=== PATIENT | male | born 1955 | race Caucasian/White ===

== ENCOUNTER 2024-02-10 22:55 | Inpatient (IN) | payer OTHER, SELFPAY ==
[2024-02-10 18:04] VITALS: BP 170/91
[2024-02-10] MEDS: OMNIPAQUE 50 ML PO (19:12)
[2024-02-10] MEDS: NSS 1000 IV (19:21)
[2024-02-10] MEDS: ZOFRAN 4 MG IV (19:21)
[2024-02-10 19:31] LABS: % Basophils 0.2 % (0-2); % Immature Granulocytes 0.7 % (0-0.5); % Lymphocytes 2.6 % (20.5-51.1); % Neutrophils 92.5 % (42.2-75.2); Absolute Immature Granulocytes 0.1 10^3/uL (0-0.05); Absolute Lymphocytes 0.4 10^3/uL (1.2-3.4); Absolute Monocytes 0.6 10^3/uL (0.1-0.6); Absolute Neutrophils 13.6 10^3/uL (1.4-6.5); Hematocrit 52.8 % (39.0-52.0); Hemoglobin 18.2 g/dL (13.0-18.0); Mean Corp Hgb Conc. 34.5 g/dL (33.0-37.0); Mean Corpuscular Hgb 29.5 pg (27.0-31.0); Mean Corpuscular Volume 85.7 fL (80.0-94.0); Mean Platelet Volume 9.2 fL (7.4-10.4); Nucleated Red Blood Cells % 0 % (-); Platelet Count 261 10^3/uL (130-400); Red Blood Cell Count 6.16 10^6/uL (4.70-6.10); Red Cell Dist. Width 13.2 % (11.5-14.5); White Blood Cell Count 14.7 10^3/uL (4.8-10.8)
[2024-02-10] MEDS: DILAUDID 0.5 MG IV ×2 (19:38→21:47)
[2024-02-10 19:45] LABS: ALT (SGPT) 23 U/L (0-50); AST (SGOT) 31 U/L (17-59); Alkaline Phosphatase 83 U/L (38-126); Blood Urea Nitrogen 21 mg/dl (9-20); Calcium 9.7 mg/dl (8.4-10.2); Carbon Dioxide 23 mmol/L (22-30); Chloride 100 mmol/L (98-107); Glucose 190 mg/dl (70-99); Potassium 4.3 mmol/L (3.5-5.1); Sodium 136 mmol/L (135-145); Total Protein 7.4 g/dl (6.3-8.2); eGFR > 60.00
[2024-02-10 19:47] LABS: Lipase 33 U/L (23-300)
[2024-02-10 20:24] LABS: Lactic Acid 2.3 mmol/L (0.7-2.0)
--- NOTE | 2024-02-10 20:25 | ED.GENMED ---
History of Present Illness
<Yola Leonard NP - Last Filed: 02/11/24 15:53>
General
Chief Complaint: Abdominal Pain
Source: patient
Exam Limitations: none
Time Seen by Provider: 02/10/24 18:27
Nursing documentation reviewed up to this point in time: agreed with
Travel History
Have you had any contact with someone who has COVID-19?: No
Do you have any symptoms of coronavirus? Fever > 100 degrees, chills, cough, shortness of breath, sore throat, loss of taste or smell, muscle aches, or headache?: No
History of Present Illness
History of Present Illness:
Patient to ED with complaint of lower abd. pain, nausea and vomiting. States he felt well this AM, ate breakfast and then at around 9AM developed abdominal pain. Vomiting started around 3PM. Denies fever/chills, diarrha. No prior history of
same. Brought to ED by spouse for eval.
Past History
<Yola Leonard NP - Last Filed: 02/11/24 15:53>
Past History
ED Past Medical History: GERD and HTN
ED Past Surgical History: Other (Inguinal hernia repair, vasectomy)
Social History
Tobacco: Non-smoker
Alcohol: None
Drug: None
Personal:
Living: with family
Review of Systems
<Yola Leonard NP - Last Filed: 02/11/24 15:53>
Review of Systems
Allergies reviewed?: Yes
All Other Systems: ROS reviewed and negative except as documented in HPI and ROS
Constitutional: Reports no symptoms
EENT: Reports no symptoms
Respiratory: Reports no symptoms
Cardiac: Reports no symptoms
ABD/GI: Reports abdominal pain, nausea and vomiting
: Reports no symptoms
Musculoskeletal: Reports no symptoms
Skin: Reports no symptoms
Neurological: Reports no symptoms
Psychiatric: Reports no symptoms
Phy Exam
<Yola Leonard NP - Last Filed: 02/11/24 15:53>
General Physical Exam
General Presentation: moderate distress
General age: appears stated age
General Skin: warm and dry
General Habitus: normal
General Mental: alert
Cardiovascular Exam
Cardiovascular Exam: regular rate/rhythm and no edema
Pulmonary Exam
Pulmonary Exam: no respiratory distress and chest non tender
Gastrointestinal Exam
Gastrointestinal Exam: normal bowel sounds, soft, no organomegaly, non distended and no cva tenderness
Palpation: left upper quadrant: Minimal tenderness, left lower quadrant: Moderate tenderness, right upper quadrant: Minimal tenderness and right lower quadrant: Moderate tenderness
Musculoskeletal Exam
Musculoskeletal Exam: full ROM and neuro vasc intact
Skin Exam
Skin Exam: normal color, warm/dry and no rash
Psychiatric Exam
Psychiatric Exam: normal mood/affect
Course
<Yola Leonard HOMEBIRTH MIDWIFE - Last Filed: 02/11/24 15:53>
Orders/Labs/Results
Orders:
Orders
02/10/24 19:01
Ondansetron Injectable [Zofran] 4 mg IV NOW STA
02/10/24 19:02
0.9% Sodium Chloride 1000 ml [Nss] 1,000 ml IV BOLUS
02/10/24 19:05
CT Abd/pel W Iv And Oral Contr Urgent
Comment:
Reason For Exam: diffuse abdominal pain
Iohexol [Omnipaque] See Protocol PO NOW STA
02/10/24 19:23
Complete Blood Count/With Diff Urgent
Comprehensive Metabolic Panel Urgent
Lipase Urgent
02/10/24 19:30
HYDROmorphone [Dilaudid] 0.5 mg IV NOW STA
02/10/24 20:04
Lactic Acid Urgent
Blood Culture Q30M
FÉLIX Source: Blood/Venous
Specimen Description:
Blood Culture Q30M
FÉLIX Source: Blood/Venous
Specimen Description:
02/10/24 20:31
0.9% Sodium Chloride 1000 ml [Nss] 1,000 ml IV BOLUS
02/10/24 21:08
Urinalysis Reflex To Culture Urgent
Date Specimen was Collected: 02/10/24
Time Specimen was Collected: 20:58
Urine Microscopic Reflex Cult Urgent
02/10/24 21:42
HYDROmorphone [Dilaudid] 0.5 mg IV NOW STA
02/10/24 21:43
Lactated Ringers [Lr] 1,000 ml IV BOLUS
02/10/24 22:44
Admit/Transfer Patient As Directed
Co-Sign Provider:
Level of Care: Inpatient admission
Assign to:: IMU- Intermediate Care
Physician / Group: emanuel
Diagnosis: SBO
Reason for Hospitalization: SBO
Expected length of stay greater than two midnights?: Yes
ELOS- Estimated Length of Stay in days: 2
I certify the patient meets the requirements for IP care: Yes
02/10/24 22:45
Code Status As Directed
Resuscitation Status: Full Code
02/10/24 22:47
LevoFLOXacin 750 MG/150 ML [Levaquin] 750 mg in 150 ml IV NOW
MetroNIDAZOLE 500 MG/100 ML [Flagyl 500 mg] 100 ml IV NOW
02/10/24 22:54
HYDROmorphone [Dilaudid] 0.25 mg IV PACU-Q5MPRN PRN
HYDROmorphone [Dilaudid] 0.5 mg IV PACU-Q5MPRN PRN
Meperidine [Demerol] 12.5 mg IV PACU-Q5MPRN PRN
Ondansetron Injectable [Zofran] 4 mg IV PACU-ONCEPRN PRN
Prochlorperazine [Compazine] 5 mg IV PACU-ONCEPRN PRN
Notify MD As Directed
Notify physician if: for SDS patients with known or suspected sleep obstructive sleep apnea, monitor in the
PACU.
Notify MD for any apneic/desaturation episodes
O2 Therapy [RESP] Urgent
Titrate/Wean O2 to maintain O2 sat greater than (%): 92
Special Instructions: -Provide supplemental oxygen to achieve O2 sat of 92% or greater.
-After 15 min, may wean O2 and discontinue if patient is able to maintain O2 sat of 92%
or greater during recovery period.
If patient is a discharge home, without oxygen therapy, notify anestheiologist if
unable to maintain O2 SAT of 92% or greater on room air for MD clearance.
02/10/24 23:00
Lactic Acid Urgent
Flush (0.9% Sodium Chloride) [Flush (Nss)] See Dose Instructions IV PER PROTOCOL
Normosol (Mult Electrolytes) [Normosol-R] 1,000 ml IV PER PROTOCOL
02/10/24 23:45
Cefepime HCl [Maxipime] 2,000 mg IV Q8H
02/11/24 00:26
0.9% Sodium Chloride 1000 ml [Nss] 1,000 ml IV 100 mls/hr
HYDROmorphone [Dilaudid] 0.5 mg IV Q4HPRN PRN
HydrALAZINE [Apresoline] 5 mg IV Q6HPRN PRN
LevoFLOXacin 750 MG/150 ML [Levaquin] 750 mg in 150 ml IV Q24H
Ondansetron Injectable [Zofran] 4 mg IV Q6HPRN PRN
02/11/24 00:26
SURGICAL CONSULT Routine
Consulting Provider: Roni Lucas
Was physician already notified: Yes
Activity As Directed
Activity Level: As Tolerated
Pneumatic Compression Sleeves As Directed
Type: Knee high
Vital Signs As Directed
Frequency: Per unit guidelines
DX Deep Vein Thrombosis Video Routine
02/11/24 03:20
Complete Blood Count/With Diff IN AM
Comprehensive Metabolic Panel IN AM
02/11/24 12:00
MetroNIDAZOLE 500 MG/100 ML [Flagyl 500 mg] 100 ml IV Q8H
02/11/24 Dinner
NPO
Allow oral meds: No
Allow clear liquids: No
02/11/24 22:00
Famotidine [Pepcid] 20 mg IV HS
Abnormal Lab Results
02/10/24 02/10/24 02/10/24
19:23 20:04 21:08
WBC 14.7 H 10^3/uL
(4.8-10.8)
RBC 6.16 H 10^6/uL
(4.70-6.10)
Hgb 18.2 H g/dL
(13.0-18.0)
Hct 52.8 H %
(39.0-52.0)
Abs Immat Gran (auto) 0.1 H 10^3/uL
(0-0.05)
Absolute Neuts (auto) 13.6 H 10^3/uL
(1.4-6.5)
Absolute Lymphs (auto) 0.4 L 10^3/uL
(1.2-3.4)
Immature Gran % 0.7 H %
(0-0.5)
Neutrophils % 92.5 H %
(42.2-75.2)
Lymphocytes % 2.6 L %
(20.5-51.1)
BUN 21 H mg/dl
(9-20)
Glucose 190 H mg/dl
(70-99)
Lactic Acid 2.3 H mmol/L
(0.7-2.0)
Urine Ketones 2+ A
(Negative)
Urine Bacteria (Reflex) Few A
(Negative)
Urine Glucose 1+ A
(Negative)
Urine Albumin (Reflex) 1+ A
(Neg - Trace)
02/10/24 19:23
02/10/24 19:23
Vital Signs
Initial and Last Documented VS:
Initial Vital Signs
Temp Pulse Resp BP Pulse Ox
97.8 F 51 20 170/91 100
02/10/24 18:04 02/10/24 18:04 02/10/24 18:04 02/10/24 18:04 02/10/24 18:04
Last Documented Vital Signs
Temp Pulse Resp BP Pulse Ox
100.2 F 83 20 82/64 94
02/11/24 15:00 02/11/24 14:45 02/11/24 14:45 02/11/24 14:45 02/11/24 15:31
<Nir Mistry PA-C - Last Filed: 02/10/24 23:46>
Orders/Labs/Results
Orders:
Orders
02/10/24 19:01
Ondansetron Injectable [Zofran] 4 mg IV NOW STA
02/10/24 19:02
0.9% Sodium Chloride 1000 ml [Nss] 1,000 ml IV BOLUS
02/10/24 19:05
CT Abd/pel W Iv And Oral Contr Urgent
Comment:
Reason For Exam: diffuse abdominal pain
Iohexol [Omnipaque] See Protocol PO NOW STA
02/10/24 19:23
Complete Blood Count/With Diff Urgent
Comprehensive Metabolic Panel Urgent
Lipase Urgent
02/10/24 19:30
HYDROmorphone [Dilaudid] 0.5 mg IV NOW STA
02/10/24 20:04
Lactic Acid Urgent
Blood Culture Q30M
FÉLIX Source: Blood/Venous
Specimen Description:
Blood Culture Q30M
FÉLIX Source: Blood/Venous
Specimen Description:
02/10/24 20:31
0.9% Sodium Chloride 1000 ml [Nss] 1,000 ml IV BOLUS
02/10/24 21:08
Urinalysis Reflex To Culture Urgent
Date Specimen was Collected: 02/10/24
Time Specimen was Collected: 20:58
Urine Microscopic Reflex Cult Urgent
02/10/24 21:42
HYDROmorphone [Dilaudid] 0.5 mg IV NOW STA
02/10/24 21:43
Lactated Ringers [Lr] 1,000 ml IV BOLUS
02/10/24 22:44
Admit/Transfer Patient As Directed
Co-Sign Provider:
Level of Care: Inpatient admission
Assign to:: IMU- Intermediate Care
Physician / Group: emanuel
Diagnosis: SBO
Reason for Hospitalization: SBO
Expected length of stay greater than two midnights?: Yes
ELOS- Estimated Length of Stay in days: 2
I certify the patient meets the requirements for IP care: Yes
02/10/24 22:45
Code Status As Directed
Resuscitation Status: Full Code
02/10/24 22:47
LevoFLOXacin 750 MG/150 ML [Levaquin] 750 mg in 150 ml IV NOW
MetroNIDAZOLE 500 MG/100 ML [Flagyl 500 mg] 100 ml IV NOW
02/10/24 22:54
HYDROmorphone [Dilaudid] 0.25 mg IV PACU-Q5MPRN PRN
HYDROmorphone [Dilaudid] 0.5 mg IV PACU-Q5MPRN PRN
Meperidine [Demerol] 12.5 mg IV PACU-Q5MPRN PRN
Ondansetron Injectable [Zofran] 4 mg IV PACU-ONCEPRN PRN
Prochlorperazine [Compazine] 5 mg IV PACU-ONCEPRN PRN
Notify MD As Directed
Notify physician if: for SDS patients with known or suspected sleep obstructive sleep apnea, monitor in the
PACU.
Notify MD for any apneic/desaturation episodes
O2 Therapy [RESP] Urgent
Titrate/Wean O2 to maintain O2 sat greater than (%): 92
Special Instructions: -Provide supplemental oxygen to achieve O2 sat of 92% or greater.
-After 15 min, may wean O2 and discontinue if patient is able to maintain O2 sat of 92%
or greater during recovery period.
If patient is a discharge home, without oxygen therapy, notify anestheiologist if
unable to maintain O2 SAT of 92% or greater on room air for MD clearance.
02/10/24 23:00
Lactic Acid Urgent
Flush (0.9% Sodium Chloride) [Flush (Nss)] See Dose Instructions IV PER PROTOCOL
Normosol (Mult Electrolytes) [Normosol-R] 1,000 ml IV PER PROTOCOL
02/10/24 23:45
Cefepime HCl [Maxipime] 2,000 mg IV Q8H
02/11/24 00:26
0.9% Sodium Chloride 1000 ml [Nss] 1,000 ml IV 100 mls/hr
HYDROmorphone [Dilaudid] 0.5 mg IV Q4HPRN PRN
HydrALAZINE [Apresoline] 5 mg IV Q6HPRN PRN
LevoFLOXacin 750 MG/150 ML [Levaquin] 750 mg in 150 ml IV Q24H
Ondansetron Injectable [Zofran] 4 mg IV Q6HPRN PRN
02/11/24 00:26
SURGICAL CONSULT Routine
Consulting Provider: Roni Lucas
Was physician already notified: Yes
Activity As Directed
Activity Level: As Tolerated
Pneumatic Compression Sleeves As Directed
Type: Knee high
Vital Signs As Directed
Frequency: Per unit guidelines
DX Deep Vein Thrombosis Video Routine
02/11/24 03:20
Complete Blood Count/With Diff IN AM
Comprehensive Metabolic Panel IN AM
02/11/24 12:00
MetroNIDAZOLE 500 MG/100 ML [Flagyl 500 mg] 100 ml IV Q8H
02/11/24 Dinner
NPO
Allow oral meds: No
Allow clear liquids: No
02/11/24 22:00
Famotidine [Pepcid] 20 mg IV HS
Abnormal Lab Results
02/10/24 02/10/24 02/10/24
19:23 20:04 21:08
WBC 14.7 H 10^3/uL
(4.8-10.8)
RBC 6.16 H 10^6/uL
(4.70-6.10)
Hgb 18.2 H g/dL
(13.0-18.0)
Hct 52.8 H %
(39.0-52.0)
Abs Immat Gran (auto) 0.1 H 10^3/uL
(0-0.05)
Absolute Neuts (auto) 13.6 H 10^3/uL
(1.4-6.5)
Absolute Lymphs (auto) 0.4 L 10^3/uL
(1.2-3.4)
Immature Gran % 0.7 H %
(0-0.5)
Neutrophils % 92.5 H %
(42.2-75.2)
Lymphocytes % 2.6 L %
(20.5-51.1)
BUN 21 H mg/dl
(9-20)
Glucose 190 H mg/dl
(70-99)
Lactic Acid 2.3 H mmol/L
(0.7-2.0)
Urine Ketones 2+ A
(Negative)
Urine Bacteria (Reflex) Few A
(Negative)
Urine Glucose 1+ A
(Negative)
Urine Albumin (Reflex) 1+ A
(Neg - Trace)
02/10/24 19:23
02/10/24 19:23
Vital Signs
Initial and Last Documented VS:
Initial Vital Signs
Temp Pulse Resp BP Pulse Ox
97.8 F 51 20 170/91 100
02/10/24 18:04 02/10/24 18:04 02/10/24 18:04 02/10/24 18:04 02/10/24 18:04
Last Documented Vital Signs
Temp Pulse Resp BP Pulse Ox
100.2 F 83 20 82/64 94
02/11/24 15:00 02/11/24 14:45 02/11/24 14:45 02/11/24 14:45 02/11/24 15:31
<Yola Leonard NP - Last Filed: 02/11/24 15:53>
*Radiology
Radiology exam reviewed: radiology read reviewed
*Pulse Oximetry
Patient hypoxic: no
<Nir Mistry PA-C - Last Filed: 02/10/24 23:46>
*Critical Care Note
Total Time (30-74mins, 75-104mins- exclusive of procedures): 45 minutes
comment:
Critical care time: 45 minutes
Critical care time was exclusive of: Separately billable procedures, treating other patients, and teaching time
Critical care was necessary to treat or prevent imminent or life-threatening deterioration of the following conditions: Bowel obstruction with bowel ischemia
Critical care time spent personally by me on the following activities:
[x] Review of old charts
[x] Obtaining history from patient or surrogate
[x] Ordering and review of the laboratory studies
[x] Ordering and review of radiographic studies
[x] Ordering and performing treatments and interventions
[x] Patient patient's response to treatment
[x] Development of treatment plan with patient or surrogate
<Nir Mistry PA-C - Last Filed: 02/10/24 23:46>
Update Note
Update Note:
Assumed care of patient from Yola Leonard HOMEBIRTH MIDWIFE at shift change 2100. Awaiting CT scan for diffuse abdominal pain. Has received IV fluids, antiemetics, and opiates for pain.
02/10/2024 2145 PM: CT personally reviewed by me concerning for bowel perforation with significant free fluid in the peritoneum as well as diaphragmatic air, patient reassessed, he has a peritonitic abdomen but appears clinically stable otherwise.
Will order further IV fluid resuscitation and pain control, awaiting radiology read
02/10/20243: Case was reviewed with general surgery hospitalist for admission purposes. NG tube was attempted twice by nursing staff, there was some removal of gastric contents however the patient began to vomit around the tube and the tube was
withdrawn. General surgery reviewed the images and has opted for urgent operative intervention due to signs of bowel ischemia. Levofloxacin and metronidazole will be administered. Patient will be taken urgently to the OR
ED Attending Note
<Yola Leonard NP - Last Filed: 02/11/24 15:53>
-
Portions of this chart may have been created with voice recognition software.� Occasional wrong word or��sound alike� substitutions may have occurred due to the inherent limitations of voice recognition software.
Discharge Plan
Departure
Patient Disposition: Admit
Date of Disposition: 02/10/24
Time of Disposition: 22:32
Admit to: ICU
Presentation/result/management discussed w/ accepting MD/DO: Hospitalist
Discharge Problem:
Small bowel obstruction
Interventions
Interventions:
*Risk Screen - Suicide Last Done: 02/10/24 18:59
*General Assessment Last Done: 02/10/24 18:59
*Neglect/Abuse Screening Last Done: 02/10/24 18:59
ED- Fall Risk Assessment Last Done: 02/10/24 23:28
*ED COVID-19 Vaccine History Last Done: 02/10/24 18:04
*Nursing Disposition Last Done: 02/10/24 23:40
GE-Mkfqct-Bzwdavpbpo Assessment Last Done: 02/10/24 23:28
Discharge Date and Time
Discharge Date/Time: 02/10/24 23:41
[2024-02-10 21:15] LABS: Urine Albumin 1+ (Neg - Trace); Urine Bilirubin Negative (Negative); Urine Character Clear (Clear); Urine Color Yellow; Urine Glucose 1+ (Negative); Urine Ketone 2+ (Negative); Urine Leukocyte Negative (Negative); Urine Nitrite Negative (Negative); Urine Occult Blood Negative (Negative); Urine Specific Gravity 1.025 (<1.030); Urine Urobilinogen Negative (Neg - 1+)
[2024-02-10 21:23] LABS: Urine Mucus Few; Urine Squamous Cell 0-2 /LPF (Few)
[2024-02-10 21:24] LABS: Urine Bacteria Few (Negative); Urine Red Blood Cell 0-2 /HPF (0-2); Urine White Cell 0-2 /HPF (0-5)
[2024-02-10] MEDS: LR 1000 IV (21:47)
[2024-02-10 22:32] VITALS: BP 124/100
[2024-02-10 22:35] VITALS: BP 124/97
[2024-02-10 23:00] VITALS: BP 118/99
--- NOTE | 2024-02-10 23:03 | HPS.HSE ---
Addendum entered and electronically signed by Awa Walsh MD 02/10/24 23:18:
Irregular heart rate secondary to PVCs seen on heart monitor.
Original Note:
Family Physician
-
Family Physician: Michael Dent
Chief Complaint
-
abdominal pain, vomiting
History of Present Illness
68-year-old male past medical history of hypertension, GERD, gout, presenting with lower abdominal pain, nausea and vomiting. He felt fine this morning and ate breakfast and then around 9 AM he developed the pain across his abdomen. Vomiting
started later at around 3 PM. He denies any blood in the vomit. He denies any fevers or chills. He did have some diarrhea yesterday but no bowel movements today.
He denies smoking or alcohol use.
He had right inguinal hernia repair in 2019.
Medical History
Past Medical History
Past Medical History: Reports Other (hypertension, GERD, gout)
Past Surgical History: Reports Other (Inguinal hernia repair, vasectomy,)
Social History
Tobacco: Non-smoker
Alcohol: None
Drug: None
Family History
Family History: Not pertinent
Allergies / Home Medications
Allergies reflects when Allergies were last updated in [employer].
Home Medications with original date entered in [employer]
Allergy/Medication List:
Allergies
Allergy/AdvReac Type Severity Reaction Status Date / Time
Penicillins Allergy Hives Verified 02/10/24 18:08
Home Medications
allopurinol 300 mg tablet 300 mg PO DAILY 02/10/24
amlodipine 5 mg tablet 5 mg PO DAILY 02/10/24
aspirin 81 mg tablet,delayed release 81 mg PO DAILY 02/10/24
famotidine 20 mg tablet 20 mg PO HS 02/10/24
lisinopril 20 mg-hydrochlorothiazide 12.5 mg tablet 1 tab PO DAILY 02/10/24
lovastatin 40 mg tablet 40 mg PO HS 02/10/24
Review of Systems
-
History Source: Patient
A 12 point ROS was completed and negative except as noted: Yes
Constitutional: Reports No Symptoms
EENT: Reports No Symptoms
Respiratory: Reports No Symptoms
Cardiac: Reports No Symptoms
Abdomen/GI: Reports See HPI
: Reports No Symptoms
Musculoskeletal: Reports No Symptoms
Skin: Reports No Symptoms
Neurological: Reports No Symptoms
Endocrine: Reports No Symptoms
Hematologic/Lymphatic: Reports No Symptoms
Psych: Reports No Symptoms
Physical Exam
Vital Signs
Vital Signs
Temp Pulse Resp BP Pulse Ox
97.8 F 51 20 170/91 100
02/10/24 18:04 02/10/24 18:04 02/10/24 18:04 02/10/24 18:04 02/10/24 18:04
Physical Exam
General: Well Developed, Well Nourished and No Apparent Distress
HEENT: NormoCephalic, Moist mucous membranes and Atraumatic
Respiratory: Clear
Cardiac: S1/S2 and Regular Rhythm; No Murmur or Rub
GI: Soft, Non Distended, Normal Bowel Sounds and Tender (diffusely ); No Organomegaly
Rectal: Deferred by Provider
Musculoskeletal: No Clubbing, No Cyanosis and No Edema
Skin: No Rash
Neuro: Nonfocal/grossly intact
Laboratory Results
-
02/10/24 19:23
02/10/24 19:23
Laboratory Results
Lactic Acid 2.3 mmol/L (0.7-2.0) H 02/10/24 20:04
Total Bilirubin 1.0 mg/dl (0.2-1.3) 02/10/24 19:23
AST 31 U/L (17-59) 02/10/24 19:23
ALT 23 U/L (0-50) 04/30/24 19:23
Alkaline Phosphatase 83 U/L (38-126) 02/10/24 19:23
Lipase 33 U/L (23-300) 02/10/24 19:23
Data Reviewed
-
Lab Data: Labs Reviewed by me
Old Records: Reviewed
Impression/Plan
-
IMPRESSION:
PLAN:
# Small bowel closed-loop obstruction with ischemia possibly secondary to internal hernia/volvulus
# Associated slight twisting of adjacent distal transverse/proximal descending colon without colonic obstruction
-N.p.o. including oral medications
-NG tube attempted but unable to be placed
-Blood cultures pending
-IV fluids
-Levaquin/Flagyl
-Zofran, Dilaudid as needed
-Surgery consulted and patient to undergo ex lap tonight
# Essential hypertension
-Hold amlodipine, lisinopril/thiazide,
-As needed hydralazine
GERD
-Switch Pepcid to IV
Gout
-Hold allopurinol
Full code
DVT prophylaxis�SCDs
N.p.o.
[2024-02-10] MEDS: LEVAQUIN 150 IV (23:14)
[2024-02-10 23:17] LABS: Lactic Acid 4.3 mmol/L (0.7-2.0)
[2024-02-10 23:26] VITALS: BP 110/95
[2024-02-11] VITALS (67 sets, daily range): BP systolic 76–120; BP diastolic 52–98; BMI 27.5
--- NOTE | 2024-02-11 02:09 | CON.GS ---
Consultation
-
Requesting Provider: Fidelia
Performing Provider: Shayy
Reason for Consultation: Ischemic bowel
Medical History
-
Chief Complaint: Abd pain
History of Present Illness:
68-year-old male presenting with acute onset lower abdominal pain, nausea and vomiting that began this morning. He felt fine this initially morning and ate breakfast and then around 9 AM he developed the pain across his lower abdomen. Vomiting
started later at around 3 PM. He denies any blood in the vomit. He denies any fevers or chills. He did have some diarrhea yesterday but no bowel movements today. Never had a similar problem in the past.
Past Medical History
Past Medical History: Other (hypertension, GERD, gout)
Past Surgical History: Other (inguinal hernia repair, vasectomy)
Social History
Tobacco: Non-Smoker
Alcohol: None
Drug: None
Personal:
Living: With Family
Family History
Family History: Reviewed & Noncontributory
Allergies / Home Medications
Allergy/AdvReac Type Severity Reaction Status Date / Time
Penicillins Allergy Hives Verified 02/10/24 18:08
�Medication �Instructions �Recorded �Confirmed �Type
allopurinol 300 mg tablet 300 mg PO DAILY 02/10/24 02/10/24 History
amlodipine 5 mg tablet 5 mg PO DAILY 02/10/24 02/10/24 History
aspirin 81 mg tablet,delayed 81 mg PO DAILY 02/10/24 02/10/24 History
release
famotidine 20 mg tablet 20 mg PO HS 02/10/24 02/10/24 History
lisinopril 20 1 tab PO DAILY 02/10/24 02/10/24 History
mg-hydrochlorothiazide 12.5 mg
tablet
lovastatin 40 mg tablet 40 mg PO HS 02/10/24 02/10/24 History
Review of Systems
-
A 10 point review of systems was completed, and was negative except as per HPI.
Physical Exam
Vital Signs
Temp Pulse Resp BP Pulse Ox
98.4 F 105 23 118/99 95
02/10/24 23:00 02/10/24 23:00 02/10/24 23:00 02/10/24 23:00 02/10/24 23:00
02/09/24 02/10/24 02/11/24
06:59 06:59 06:59
Actual Weight 82.5 kg
Lab Results
WBC 14.7 10^3/uL (4.8-10.8) H 02/10/24 19:23
Hgb 18.2 g/dL (13.0-18.0) H 02/10/24 19:23
Hct 52.8 % (39.0-52.0) H 02/10/24 19:23
Plt Count 261 10^3/uL (130-400) 02/10/24 19:23
Abs Immat Gran (auto) 0.1 10^3/uL (0-0.05) H 02/10/24 19:23
Neutrophils % 92.5 % (42.2-75.2) H 02/10/24 19:23
Physical Exam
General: Other (mild distress)
HEENT: Normocephalic and Anicteric
GI: Soft, Tender (tt light perc) and Distended
Skin: Other (pale, diaphoretic)
Neuro: AO x 3
Data Reviewed
-
CT Scan: Image Personally Visualized and interpreted, Report Reviewed by me, Discussed with Physician, Discussed with Patient and Discussed with Family
Labs: Labs Reviewed by me, Discussed with Physician, Discussed with Patient and Discussed with Family
Assessment / Plan
-
68M with ischemic bowel, peritonitis 2/2 closed loop SBO
AFVSS, diffuse peritonitis on exam
Mild leukocytosis, CBC appears concentrated
Lactic elevated in ED on initial draw
CT with severely edematous small bowel and apparent closed loop obstruction without free air, pneumatosis or PV gas; segment of affected bowel appears limited to left jesusita-abdomen
Plan:
Hospitalist admit
NGT/NPO/IVF
IV abx empiric
OCTOR for dx lap, poss ex lap, poss bowel resection
SCDs for DVT ppx
--- NOTE | 2024-02-11 02:14 | W.IMMPOSTOP ---
Surgical Immed Post Op Note
-
Primary Surgeon: Shayy
Pre-op Diagnosis: Ischemic bowel
Post-op Diagnosis: Ischemic bowel, necrotic bowel
Procedure Performed: Diagnostic laparoscopy, exploratory laparotomy, small bowel resection
Anesthesia Type: GETA + TAP block (marcaine)
Specimen / Cultures: Approx 135cm distal small bowel
Estimated Blood Loss: 15cc
Complications: None
Operative Findings: Hemorrhagic and necrotic small bowel tethered by a single band adhesion in the left lower quadrant, affected segment was distal small bowel up to about 25cm proximal to the cecum; no perforation, no contamination; side-side
stapled anastomosis with DEENA 80mm purple load stapler, corners dunked with lembert sutures, mesenteric defect closed
--- NOTE | 2024-02-11 02:19 | OR.RPT ---
Operative Report
Operative Report
Primary Surgeon: Shayy
Pre-op Diagnosis: Ischemic bowel
Post-op Diagnosis: Ischemic bowel, necrotic bowel
Procedure Performed: Diagnostic laparoscopy, exploratory laparotomy, small bowel resection
Anesthesia Type: GETA + TAP block (marcaine)
Specimen / Cultures: Approx 135cm distal small bowel
Estimated Blood Loss: 15cc
Complications: None
Operative Findings: Hemorrhagic and necrotic small bowel tethered by a single band adhesion in the left lower quadrant, affected segment was distal small bowel up to about 25cm proximal to the cecum; no perforation, no contamination; side-side
stapled anastomosis with DEENA 80mm purple load stapler, corners dunked with lembert sutures, mesenteric defect closed
Date of Surgery: 02/11/24
Indications: This 68M developed lower abdominal pain and on workup was found to have threatened bowel. Diagnostic laparoscopy with possible exploratory laparotomy and possible small bowel resection was planned.
Description of procedure: The patient was placed on the operating table in the supine position. General anesthesia was induced. A time-out was completed verifying correct patient, procedure, site, positioning, and special equipment prior to
beginning this procedure. A nasogastric tube was placed. The abdomen was prepped and draped in the usual sterile fashion. A stab incision was made in left upper quadrant and the Veress needle was inserted. Proper position was confirmed by aspiration
and saline meniscus test. The abdomen was insufflated with carbon dioxide to a pressure of 12 mmHg. The patient tolerated insufflation well.
A 5mm optical trocar was then inserted at the right lower quadrant. The laparoscope was inserted and the abdomen inspected. No injuries from initial trocar placement or Veress needle insertion were noted. An additional 5mm trocar was then inserted a
hand's breadth above the initial trocar under direct vision. The abdomen was inspected and hemorrhagic fluid and dark hemorrhagic small bowel was noted. An atraumatic bowel grasper was used to gently sweep the affected small bowel laterally and
healthy viable small bowel was exposed. This bowel was run in a proximal direction to the ligament of treitz and then distally back down to the transition point in the left lower quadrant. In this area black frankly necrotic small bowel was visible.
At this point the operation was converted to open. An upper midline incision was created with bovie cut cautery and carried down to the linea alba with coag cautery. The linea alba was divided and the abdomen was entered. Hemorrhagic fluid was
suctioned. The bowel was manually run to the transition point which was deep and posterior in the left lower quadrant. A single band adhesion was palpated tethering the bowel in this location, this adhesion was lysed bluntly with finger fracture
technique. The liberated small bowel immediately perked up. It was run again and the flick test was used to determine bowel viability in the zones distal and proximal to the frankly necrotic segment where the bowel was clearly hemorrhagic but
appeared potentially viable. The affected segment measured about 135cm. The viable segment measured approximately 175cm including the proximal segment and the viable portion of the terminal ileum. The bowel was transected proximal and distal to the
affected segment in areas where peristalsis was confirmed, using an 80mm DEENA stapler with purple loads. A side-side anastomosis was created with the same stapler and loads. The common channel was inspected and intraluminal hemostasis was assured
prior to closure. The corners of the staple line were dunked using 2-0 vicryl lembert sutures. The mesenteric defect was closed with the same suture. The abdomen was irrigated with warm sterile saline. The fascia was closed with #1 PDS stratafix
suture. The subcutaneous tissue was irrigated with sterile saline and the skin was closed with cleopatra and covered with an aquacel dressing. The two lap sites were closed with cleopatra and dressed with plain dry gauze and tegaderm, the veress site
was dressed with a bandaid.
The patient remained intubated at the conclusion of the procedure and was taken directly to the ICU on vasoactive medications.
[2024-02-11] MEDS: DIPRIVAN 100 IV (03:06)
[2024-02-11] MEDS: SUBLIMAZE 100 IV (03:07)
[2024-02-11 03:26] LABS: B.E. -5.2 mmol/L; HCO3 19.2 mmol/L (21-28); O2 Saturation % 99.6 % (94-98); PCO2 34 mmHg (35-48); PO2 249 mmHg (83-108); pH 7.36 (7.35-7.45)
[2024-02-11 03:29] LABS: % Basophils 0.2 % (0-2); % Eosinophils 0.1 % (0-6); % Immature Granulocytes 0.9 % (0-0.5); % Lymphocytes 3.6 % (20.5-51.1); % Monocytes 6.9 % (1.7-9.3); % Neutrophils 88.3 % (42.2-75.2); Absolute Immature Granulocytes 0.1 10^3/uL (0-0.05); Absolute Lymphocytes 0.4 10^3/uL (1.2-3.4); Absolute Monocytes 0.7 10^3/uL (0.1-0.6); Absolute Neutrophils 9.2 10^3/uL (1.4-6.5); Hematocrit 52.9 % (39.0-52.0); Hemoglobin 18.3 g/dL (13.0-18.0); Mean Corp Hgb Conc. 34.6 g/dL (33.0-37.0); Mean Corpuscular Hgb 29.3 pg (27.0-31.0); Mean Corpuscular Volume 84.8 fL (80.0-94.0); Mean Platelet Volume 9.3 fL (7.4-10.4); Nucleated Red Blood Cells % 0 % (-); Platelet Count 300 10^3/uL (130-400); Red Blood Cell Count 6.24 10^6/uL (4.70-6.10); Red Cell Dist. Width 13.3 % (11.5-14.5); White Blood Cell Count 10.4 10^3/uL (4.8-10.8)
[2024-02-11] MEDS: NSS 1000 IV ×3 (03:35→19:45)
[2024-02-11 03:39] LABS: INR 1.28; PT 15.8 Sec (11.4-14.6)
[2024-02-11 03:40] LABS: APTT 27.3 Sec (23.4-35.0)
[2024-02-11 03:41] LABS: O2 Therapy 60%
[2024-02-11] MEDS: FLAGYL 500 MG 100 IV ×3 (03:51→19:46)
--- NOTE | 2024-02-11 04:00 | PTCARENOTE ---
Received pt. from OR nurse at approximately 3am. Pt. sedated and intubated on ventilator. Opening eyes and making eye contact to voice. Fentanyl gtt infusing for pain management, see MAR. Afebrile. Heart rhythm sinus. Levophed gtt infusing to
maintain MAP >65. On ventilator via ETT. Ventilator settings verified. Lungs sound diminished. NG tube placed in L nare, confirmed by Xray. Pretty catheter placed per order, draining without issue. Skin as documented. Discussed plan of care with
patient's spouse before she went home. AM labs drawn. Vital signs stable at this time.
[2024-02-11 04:04] LABS: Triglycerides 79 mg/dl (10-149)
[2024-02-11 04:07] LABS: ALT (SGPT) 16 U/L (0-50); AST (SGOT) 18 U/L (17-59); Albumin 3.1 g/dl (3.5-5.0); Alkaline Phosphatase 67 U/L (38-126); Blood Urea Nitrogen 26 mg/dl (9-20); Calcium 7.7 mg/dl (8.4-10.2); Carbon Dioxide 17 mmol/L (22-30); Chloride 105 mmol/L (98-107); Estimated Creatinine Clearance 69 ml/min; Glucose 179 mg/dl (70-99); Phosphorus 3.9 mg/dl (2.5-4.5); Potassium 5.3 mmol/L (3.5-5.1); Sodium 131 mmol/L (135-145); Total Bilirubin 0.8 mg/dl (0.2-1.3); eGFR > 60.00
[2024-02-11] MEDS: SODIUM BICARBONATE 1075 MEQ IV (04:47)
[2024-02-11] MEDS: LEVOPHED 250 IV ×2 (05:32→11:06)
[2024-02-11] MEDS: LR 500 IV ×2 (06:12→15:35)
--- NOTE | 2024-02-11 09:42 | PTCARENOTE ---
Pt received from clinical nurse RN. Currently intubated and lightly sedated. Follows commands, spells out words on the bed. Fentanyl off at 0700, propofol off at 0800. NSR on tele with frequent PVC's, A line very positional, does not correlate well
with NIBP. Titrating pressors based on NIBP. Tolerating vent well, SBT started. Breath sounds clear, 100% on 40% FiO2. L nare [place] to LIS, flushed with 30mls tap water. Thermister ruby in place draining clear yellow urine at 40mls/hr. Midline ABD
incision covered with aquacell. 2 puncture sites on R side of ABD covered. 1 puncture site on L side of ABD COMIC ILLUSTRATOR. IV sites intact. Restraints intact.
--- NOTE | 2024-02-11 10:01 | W.PN.ANS.POP ---
Anesthesia Post Operative
- Anesthesia Post Op Note
Vital Signs Stable-See Nursing Note: Yes (Levophed gtt @ 8mcg/min)
Airway Patent: Yes (remains intubated)
Adequate Pain Control: Yes
Change in Mental Status: No (sedated on Propofol gtt )
Current Postoperative Nausea & Vomiting: No
Anesthesia Complications: No
General Anesthetic Recall: No
Unplanned Admission: No
Post Op Hydration Adequate: Yes (IVF)
--- NOTE | 2024-02-11 10:17 | RESPNOTE ---
10:10 patient extubated and placed on 6 liter nasal cannula
--- NOTE | 2024-02-11 10:27 | PTCARENOTE ---
Pt extubated at 1010, tolerated well. Tapering off Levophed, extra 500 mls bolus ordered. Restraints removed.
[2024-02-11] MEDS: NSS 500 IV (11:06)
--- NOTE | 2024-02-11 11:09 | CON.INTV ---
Consultation
Consultation Request
Date/Time Consultation Requested: 02/11/2024
Date/Time Consultation Performed: 02/11/2024
Requesting Provider: Dr. Lucas
Performing Provider: Dr. Pablito Taveras
Reason for Consultation: Acute respiratory failure require mechanical ventilation-status post laparo
Medical History
-
History of Present Illness:
68-year-old man with history of hypertension, GERD, gout presented with lower abdominal pain, nausea or vomiting. Apparently abdominal pain is started the morning of admission. Subsequently started vomiting.
Underwent CT abdomen pelvis that demonstrated small bowel closed-loop obstruction with ischemia possibly secondary to volvulus.
Evaluated by surgery. Subsequently taken to the operating room emergently for exploratory laparotomy, underwent small bowel resection. Overnight hypotensive, remained intubated postprocedure.
This morning in the critical care unit, and patient is intubated on mechanical ventilation. On sedation but alert and following commands.
Hemodynamically, requiring low-dose Levophed.
Mechanical ventilation settings reviewed with FiO2 of 40%.
Pulmonary mechanics appear acceptable.
ET tube without significant secretions.
Past Medical History
Past Medical History: None and Other (See assessment and plan section)
Social History
Tobacco: Non-smoker
Alcohol: None
Drug: None
Family History
Family History: Unable to Obtain
Allergies / Home Medications
Allergies
Allergy/AdvReac Type Severity Reaction Status Date / Time
Penicillins Allergy Hives Verified 02/10/24 18:08
Home Medications
�Medication �Instructions �Recorded �Confirmed �Last Taken �Type
allopurinol 300 mg tablet 300 mg PO DAILY 02/10/24 02/10/24 02/10/24 History
amlodipine 5 mg tablet 5 mg PO DAILY 02/10/24 02/10/24 02/10/24 History
aspirin 81 mg tablet,delayed 81 mg PO DAILY 02/10/24 02/10/24 02/10/24 History
release
famotidine 20 mg tablet 20 mg PO HS 0402/10/24 02/09/24 History
lisinopril 20 1 tab PO DAILY 02/10/24 02/10/24 02/10/24 History
mg-hydrochlorothiazide 12.5 mg
tablet
lovastatin 40 mg tablet 40 mg PO HS 02/10/24 02/10/24 02/09/24 History
Review of Systems
-
Unable to Obtain full review of systems at this time due to: Patient Intubation
Vitals / Labs / Diagnostic Testing
Vital Signs
Temp Pulse Resp BP Pulse Ox
99.2 F 73 20 99/73 98
02/11/24 07:38 02/11/24 11:00 02/11/24 11:00 02/11/24 11:00 02/11/24 11:00
Lab Data
02/11/24 03:20
Laboratory Results
02/11/24
03:20
PT 15.8 H
INR 1.28
APTT 27.3
pH 7.36
pCO2 34 L
pO2 249 H
HCO3 19.2 L
O2 Delivery Level 60%
Diagnostic Testing:
Physical Exam
-
HEENT: Normocephalic
Cardiovascular: S1/S2
Respiratory: Clear and Non-Labored Respirations
GI: Soft, Tender and Other (Absent bowel sounds)
Neurology: Awake, Alert and Other (Follow simple commands)
Skin: Warm
General: Respiratory Distress (n)
Assessment
-
Small bowel closed-loop obstruction with ischemia: Status post emergent expiratory laparotomy and small bowel resection.
Postoperative mechanical ventilation
Shock: Possibly hypovolemic/septic.
Non-anion gap metabolic acidosis/hyperkalemia
-
Conditions present prior admission
Gout
Hypertension
GERD
Hypercholesterolemia
Prior history of hernia repair in 2019
-
Assessment and plan:
This morning critically ill, intubated mechanical ventilation. Requiring vasopressors.
-
Mechanical ventilation center reviewed.
Adequate oxygenation
Pulmonary mechanics acceptable
Chest x-ray 02/11/2024: Reviewed showed no acute abnormalities.
ABG with adequate oxygenation on ventilation.
Spontaneous breathing trial performed by me, after 1 hour patient was adequate. Hemodynamically stable. Following commands.
Extubated earlier this morning
No stridor on exam
Oxygen supplementation as needed to maintain pulse ox above 90%.
-
Shock: Hypovolemic/septic
Additional 500 mL bolus was given by me.
Continue bicarbonate drip for now
Wean off Levophed maintain mean arterial blood pressure above 65 mmHg
Follow renal function
Pretty urinary output
repeat labs later, depending on degree of acidosis will change IV fluids.
-
Continue current antibiotics levofloxacin/metronidazole
Follow cultures
-
General surgery following the patient
Operative report reviewed
Follow H&H
-
Follow fever curve and leukocytosis
-
N.p.o. for now
Head of elevation
Diet per surgery
Continue PPI for GI prophylaxis.
-
DVT prophylaxis SCDs
-
Critical care statement: A total of 38 minutes of critical care time was provided for this patient today. This includes management of unstable vital signs, evaluation of the patient at bedside, reviewing the patient's pertinent medical records
including ventilator settings, arterial blood gases, radiographs, microbiology, laboratory evaluations and discussion with primary team, critical care nursing, and respiratory therapy.
--- NOTE | 2024-02-11 11:35 | CM ---
CM following re: discharge planning.
Discussed in Rounds, reviewed pt's chart, met with pt.
Pt is a 68year old male, admitted with primary dx of Small bowel closed-loop obstruction with ischemia: S/P emergent expiratory laparotomy and small bowel resection.
Pt reports he lives with spouse and younger son in a 2SH, 2 steps to enter, has 3 supportive children. Pt described himself as independent in all areas [employer], drives. No DME, VN or SNF history. Pt reports he walks at least 5-6 miles daily. Pt
expressed his desire to return back home at discharge.
PCP: Michael Dent
Ph[facility]acy: [facility].
D/C plan: home with anticipated no needs. Spouse to transport at discharge.
CM will follow with discharge plan updates as hospitalization progresses
--- NOTE | 2024-02-11 12:45 | W.PN.HOSP.TC ---
Today's Communication/Plan
-
continue IVF
slow wean off Levophed
continue ICU
Assessment / Plan
Assessment / Plan
# Small bowel closed-loop obstruction with ischemia possibly secondary to internal hernia/volvulus surgery consulted and underwent small bowel resection
WBC 14.7-->10.4
Hgb 18.2-->18.3
# Associated slight twisting of adjacent distal transverse/proximal descending colon without colonic obstruction
-N.p.o. including oral medications
-NG tube placed
-Blood cultures pending
-IV fluids
discussed with Dr Taveras, he will consider increase the rate of fluids pending clinical course
-Levaquin/Flagyl
-Zofran, Dilaudid as needed
Lactic Acidosis better
2.3-->4.3-->2.0
# Essential hypertension
currently hypotensive on Levophed, slowly being weaned
-Hold amlodipine, lisinopril/thiazide,
-As needed hydralazine
GERD
-Switch Pepcid to IV
Gout
-Hold allopurinol
Full code
DVT prophylaxis�SCDs
N.p.o.
Total Critical Care Time 45 minutes. I was immediately available to the patient and staff. I personally examined, reviewed labs, diagnostic images/reports, interpretations, treatment plans, discussed patient care with other providers and family
or caregivers (if patient is unable to make decisions), entered orders as appropriate and documented the medical record.
Anticipated Discharge: > 48 hours
Subjective/Interval History
-
Date of Service: February 11, 2024
Pt seen shortly after extubation, he is awake and alert
Objective Data
-
Labs:
Laboratory Results
02/11/24 02/11/24
03:20 12:24
WBC 10.4
Hgb 18.3 H
Hct 52.9 H
Plt Count 300
PT 15.8 H
INR 1.28
APTT 27.3
HCO3 19.2 L
Sodium 131 L Pending
Potassium 5.3 H Pending
Chloride 105 Pending
Carbon Dioxide 17 L Pending
BUN 26 H Pending
Creatinine 1.0 Pending
Glucose 179 H Pending
Calcium 7.7 L D Pending
Total Bilirubin 0.8
AST 18
ALT 16
Alkaline Phosphatase 67
Vital Signs:
Vital Signs
Temp Pulse Resp BP Pulse Ox
100 F 73 20 99/73 99
02/11/24 11:13 02/11/24 11:00 02/11/24 11:00 02/11/24 11:00 02/11/24 11:48
I&O
02/10/24 02/11/24 02/12/24
06:59 06:59 06:59
Intake Total 3097.5 / 3247.5 1300.0 / 1300.0
Output Total 995 / 1035 590 / 590
Balance 2102.5 / 2212.5 710.0 / 710.0
Review of Systems
-
History Source: Patient, Physician (reviewed with Dr. Taveras) and Coordinated Provider
Constitutional: Reports Fever (100)
EENT: Reports Other (NG tube in place)
Respiratory: Reports No Symptoms; Denies Cough or Trouble Breathing
Cardiac: Reports No Symptoms; Denies Chest Pain
Abdomen/GI: Reports Abdominal Pain; Denies Nausea or Vomiting
Musculoskeletal: Reports No Symptoms
Neuro: Reports No Symptoms
Physical Exam
-
General: Well Developed, Well Nourished and No Apparent Distress
HEENT: Atraumatic, Moist Mucous Membranes and Other (NG tube in place)
Respiratory: Clear to Auscultation
Cardiac: Regular Rhythm and S1/S2
GI: Soft and Tender; Negative Normal Bowel Sounds
Musculoskeletal: No Clubbing, No Cyanosis and No Edema
Neuro: Awake, Alert and Oriented
--- NOTE | 2024-02-11 13:07 | W.PN.GS2 ---
Today's Communication / Plan
-
Wean pressors
Await ROBF
Assessment / Plan
-
68M POD1 s/p dx lap --> ex lap with SBR for closed loop SBO from single band adhesion
Extubated
UOP marginal
Pressors weaning
Comfortable and non-toxic appearing
No bowel function yet
Plan:
Wean pressors
Cont NPO/IVF/NGT
Await ROBF
PRN pain control, PRN anti-emetics
PT eval
OOB
IS
Cont ruby for now
Cont IV abx
lovenox/SCDs for DVT ppx
Subjective Data
-
Date of Service: February 11, 2024
Low grade temps, pain controlled, extubated this am and satting well on RA, has not yet ambulated
Objective Data
-
Intake and Output
02/10/24/11/0502/12/24
06:59 06:59 06:59
Intake Total 3097.5 / 3247.5 1300.0 / 1300.0
Output Total 995 / 1035 590 / 590
Balance 2102.5 / 2212.5 710.0 / 710.0
Intake:
Oral fluids 800 / 800
IV fluids (Total) 1697.5 / 1847.5 1270.0 / 1270.0
0.45%NaCl 1,000 ml @ 100 mls/hr 200 / 300 600 / 600
IV .[id number] KRISTIN with Sodium
Bicarbonate 75 Meq Rx#:[id number]
Fentanyl 20 / 20 0 / 0
Levophed 240 / 285 165.0 / 165.0
Nss 1,000 ml @ 100 mls/hr IV . 200 / 200
Q10H KRISTIN Rx#:[id number]
Propofol 37.5 / 42.5 5 / 5
nss 1000 / 1000 500 / 500
IV piggybacks 600 / 600
Amount instilled into GI Tube (
Total)
[place] Sump
Output:
Emesis 400 / 400
Gastrointestinal tube output ( 300 / 300 400 / 400
Total)
[place] Sump 300 / 300 400 / 400
Urine, Ruby 295 / 335 155 / 155
Urine, Voided 35 / 35
Other:
Number of unmeasured voidings 1
Vital Signs
Temp Pulse Resp BP Pulse Ox
100 F 73 20 99/73 99
02/11/24 11:13 02/11/24 11:00 02/11/24 11:00 02/11/24 11:00 02/11/24 11:48
Calcium 7.7 mg/dl (8.4-10.2) L D 02/11/24 03:20
Phosphorus 3.9 mg/dl (2.5-4.5) 02/11/24 03:20
Magnesium 2.0 mg/dl (1.6-2.3) 02/11/24 03:20
Total Bilirubin 0.8 mg/dl (0.2-1.3) 02/11/24 03:20
AST 18 U/L (17-59) 02/11/24 03:20
ALT 16 U/L (0-50) 02/11/24 03:20
Alkaline Phosphatase 67 U/L (38-126) 02/11/24 03:20
Total Protein 5.0 g/dl (6.3-8.2) L D 02/11/24 03:20
Albumin 3.1 g/dl (3.5-5.0) L D 02/11/24 03:20
Physical Exam
-
Gen: NAD
Abd: soft, approp ttp, aquacel and gauze dressings OK
[2024-02-11 13:17] LABS: Blood Urea Nitrogen 36 mg/dl (9-20); Calcium 7.6 mg/dl (8.4-10.2); Carbon Dioxide 22 mmol/L (22-30); Chloride 101 mmol/L (98-107); Estimated Creatinine Clearance 46 ml/min; Glucose 143 mg/dl (70-99); Sodium 131 mmol/L (135-145); eGFR 50.71
[2024-02-11] MEDS: DILAUDID 1 MG IV ×2 (13:57→21:12)
[2024-02-11 15:25] LABS: % Basophils 0.2 % (0-2); % Immature Granulocytes 0.5 % (0-0.5); % Monocytes 11.6 % (1.7-9.3); % Neutrophils 84.7 % (42.2-75.2); Absolute Immature Granulocytes 0.1 10^3/uL (0-0.05); Absolute Lymphocytes 0.4 10^3/uL (1.2-3.4); Absolute Monocytes 1.7 10^3/uL (0.1-0.6); Absolute Neutrophils 12.2 10^3/uL (1.4-6.5); Hematocrit 49.4 % (39.0-52.0); Hemoglobin 16.8 g/dL (13.0-18.0); Mean Corpuscular Hgb 29.2 pg (27.0-31.0); Mean Corpuscular Volume 85.8 fL (80.0-94.0); Mean Platelet Volume 9.8 fL (7.4-10.4); Nucleated Red Blood Cells % 0 % (-); Platelet Count 235 10^3/uL (130-400); Red Blood Cell Count 5.76 10^6/uL (4.70-6.10); Red Cell Dist. Width 13.5 % (11.5-14.5); White Blood Cell Count 14.4 10^3/uL (4.8-10.8)
[2024-02-11] MEDS: LOVENOX 40 MG SC (18:34)
--- NOTE | 2024-02-11 18:47 | PTCARENOTE ---
Pt reassessed. 500 mls LR bolus given with good results. Pt's at bedside. Call fernández within reach. Pt makes needs known.
--- NOTE | 2024-02-11 20:00 | PTCARENOTE ---
Received pt. at 1900. Pt. awake, alert, and oriented. Denies pain or discomfort when sitting still. Does c/o of abdominal pain when moving. PRN medication, see MAR. Afebrile. Heart rhythm sinus. Blood pressure normotensive, vasopressors currently
off. Pt. currently on nasal cannula. Lungs sound diminished. NPO. Left nare [place] sump to LIS. Green-yellow drainage. Pretty catheter in place per order, draining without issue. Skin as documented. Discussed plan of care with patient. Vital signs
stable at this time.
[2024-02-11] MEDS: LEVAQUIN 150 IV (21:12)
[2024-02-11] MEDS: PEPCID 20 MG IV (21:13)
[2024-02-11] MEDS: NSS (PRESERVATIVE FREE) 8 ML IV (21:13)
[2024-02-12] VITALS (16 sets, daily range): BP systolic 94–153; BP diastolic 65–90; PULSE 68; BMI 28.7
--- NOTE | 2024-02-12 | PTCARENOTE ---
Pt. assessment unchanged. Vasopressors remain off. Continuing maintenance IV fluids at 150ml/hr. Urine output has been 20ml to 30ml/hr. Pt. c/o abdominal pain. PRN pain medication, see MAR. Vital signs stable at this time.
[2024-02-12] MEDS: DILAUDID 1 MG IV ×3 (01:35→15:37)
[2024-02-12] MEDS: NSS 1000 IV ×2 (02:53→10:09)
[2024-02-12] MEDS: FLAGYL 500 MG 100 IV ×3 (04:44→20:30)
--- NOTE | 2024-02-12 05:00 | PTCARENOTE ---
Pt. assessment unchanged. AM labs drawn. Blood pressure remained stable entire night. AM labs drawn.
[2024-02-12 05:18] LABS: % Basophils 0.1 % (0-2); % Immature Granulocytes 0.5 % (0-0.5); % Lymphocytes 2.8 % (20.5-51.1); % Monocytes 10.9 % (1.7-9.3); % Neutrophils 85.7 % (42.2-75.2); Absolute Immature Granulocytes 0.1 10^3/uL (0-0.05); Absolute Lymphocytes 0.4 10^3/uL (1.2-3.4); Absolute Monocytes 1.4 10^3/uL (0.1-0.6); Hematocrit 42.4 % (39.0-52.0); Hemoglobin 14.5 g/dL (13.0-18.0); Mean Corp Hgb Conc. 34.2 g/dL (33.0-37.0); Mean Corpuscular Hgb 29.4 pg (27.0-31.0); Mean Corpuscular Volume 85.8 fL (80.0-94.0); Mean Platelet Volume 9.8 fL (7.4-10.4); Nucleated Red Blood Cells % 0 % (-); Platelet Count 214 10^3/uL (130-400); Red Blood Cell Count 4.94 10^6/uL (4.70-6.10); Red Cell Dist. Width 13.6 % (11.5-14.5); White Blood Cell Count 12.9 10^3/uL (4.8-10.8)
[2024-02-12 05:28] LABS: Blood Urea Nitrogen 47 mg/dl (9-20); Calcium 7.7 mg/dl (8.4-10.2); Carbon Dioxide 26 mmol/L (22-30); Chloride 104 mmol/L (98-107); Estimated Creatinine Clearance 53 ml/min; Glucose 121 mg/dl (70-99); Potassium 3.9 mmol/L (3.5-5.1); Sodium 134 mmol/L (135-145); eGFR > 60.00
--- NOTE | 2024-02-12 07:59 | W.PN.GS2 ---
Today's Communication / Plan
-
`
Assessment / Plan
-
Assessment: 68M POD 2 s/p dx lap --> ex lap with SBR for closed loop SBO from single band adhesion
AFVSS
doing well post op
NGT outputs expectedly still bilious and elevated awaiting return of post op GI function
Plan:
PRN pain control, PRN anti-emetics
continue IVF
NGT to LIWS, awaiting GI recovery
Pretty removed
remove rogers
PT
OOB
IS
Cont IV abx
lovenox/SCDs for DVT ppx
okay to transfer to med/surg from post op surgical perspective
Subjective Data
-
Date of Service: February 12, 2024
pt seen and examined
post op incisional pain controlled
no nausea
NGT remains in place
Objective Data
-
Intake and Output
02/11/24 02/12/24 02/13/24
06:59 06:59 06:59
Intake Total 3097.5 / 3247.5 4310.0 / 4310.0
Output Total 995 / 1035 2275 / 2275
Balance 2102.5 / 2212.5 2035.0 / 2035.0
Intake:
Oral fluids 800 / 800
IV fluids (Total) 1697.5 / 1847.5 3770.0 / 3770.0
0.45%NaCl 1,000 ml @ 100 mls/hr 200 / 300 800 / 800
IV .[id number] KRISTIN with Sodium
Bicarbonate 75 Meq Rx#:[id number]
Fentanyl 20 / 20 0 / 0
Levophed 240 / 285 165.0 / 165.0
Nss 1,000 ml @ 100 mls/hr IV . 200 / 200
Q10H KRISTIN Rx#:[id number]
Propofol 37.5 / 42.5 5 / 5
nss 1000 / 1000 2800 / 2800
IV piggybacks 600 / 600 450 / 450
Amount instilled into GI Tube ( 90 /
Total)
[place] Sump /
Output:
Emesis 400 / 400
Gastrointestinal tube output ( 300 / 300 1600 / 1600
Total)
[place] Sump 300 / 300 1600 / 1600
Urine, Pretty 295 / 335 675 / 675
Other:
Number of unmeasured voidings 1
Vital Signs
Temp Pulse Resp BP Pulse Ox
98.0 F 70 21 126/81 98
02/12/24 07:43 02/12/24 07:30 02/12/24 07:30 02/12/24 07:00 02/12/24 07:30
Lab Results
02/12/24 04:50
02/12/24 04:50
Calcium 7.7 mg/dl (8.4-10.2) L 02/12/24 04:50
Phosphorus 3.9 mg/dl (2.5-4.5) 02/11/24 03:20
Magnesium 2.0 mg/dl (1.6-2.3) 02/11/24 03:20
Total Bilirubin 0.8 mg/dl (0.2-1.3) 02/11/24 03:20
AST 18 U/L (17-59) 02/11/24 03:20
ALT 16 U/L (0-50) 02/11/24 03:20
Alkaline Phosphatase 67 U/L (38-126) 02/11/24 03:20
Total Protein 5.0 g/dl (6.3-8.2) L D 02/11/24 03:20
Albumin 3.1 g/dl (3.5-5.0) L D 02/11/24 03:20
Physical Exam
-
NAD AAOx3
ABD: soft, tenderness on palpation about incision sites
midline incision with aquacel dressing
lap sites with gauze
NGT - bilious
--- NOTE | 2024-02-12 08:20 | W.PN.HOSP.TC ---
Today's Communication/Plan
-
transfer to tele
follow labs
adjust analgesia
continue NG tube
Assessment / Plan
Assessment / Plan
# Small bowel closed-loop obstruction with ischemia possibly secondary to internal hernia/volvulus surgery consulted and underwent small bowel resection
POD#2
WBC 14.7-->10.4-->12.9
Hgb 18.2-->18.3-->14.5
# Associated slight twisting of adjacent distal transverse/proximal descending colon without colonic obstruction
-N.p.o. including oral medications
-NG tube placed
-Blood cultures NGTD x2
-IV fluids
discussed with Dr Taveras, off Levophed
cleared by Surg and CCM to transfer OOICU
-Levaquin/Flagyl
-Zofran, Dilaudid as needed
Freq PVC's (1-3 per minute) Pt states always has this and goes to cardio at [facility] yearly for this and was told it was benign
Lactic Acidosis better
2.3-->4.3-->2.0
# Essential hypertension
currently normotensive, 126/81
-Hold amlodipine, lisinopril/thiazide,as pt NPO
-As needed hydralazine
GERD
continue Pepcid IV
Gout
-Hold allopurinol
Full code
DVT prophylaxis�SCDs
N.p.o.
transfer to tele
Anticipated Discharge: > 48 hours
Subjective/Interval History
-
Date of Service: February 12, 2024
Significant post op pain
Objective Data
-
Labs:
Laboratory Results
02/12/24
04:50
WBC 12.9 H
Hgb 14.5
Hct 42.4
Plt Count 214
Sodium 134 L
Potassium 3.9
Chloride 104
Carbon Dioxide 26
BUN 47 H
Creatinine 1.3
Glucose 121 H
Calcium 7.7 L
Vital Signs:
Vital Signs
Temp Pulse Resp BP Pulse Ox
98.0 F 70 21 126/81 98
02/12/24 07:43 02/12/24 07:30 02/12/24 07:30 02/12/24 07:00 02/12/24 07:30
I&O
02/11/24 02/12/24 02/13/24
06:59 06:59 06:59
Intake Total 3097.5 / 3247.5 4310.0 / 4310.0
Output Total 995 / 1035 2275 / 2275
Balance 2102.5 / 2212.5 2035.0 / 2035.0
Review of Systems
-
History Source: Patient, Physician (reviewed with Dr. Taveras) and Coordinated Provider
Constitutional: Denies Fever
EENT: Reports Other (NG tube in place)
Respiratory: Reports No Symptoms; Denies Cough or Trouble Breathing
Cardiac: Reports No Symptoms; Denies Chest Pain
Abdomen/GI: Reports Abdominal Pain; Denies Nausea or Vomiting
Genitourinary: Reports Other (ruby just removed)
Musculoskeletal: Reports No Symptoms
Neuro: Reports No Symptoms
Physical Exam
-
General: Well Developed, Well Nourished and No Apparent Distress
HEENT: Atraumatic, Moist Mucous Membranes and Other (NG tube in place)
Respiratory: Clear to Auscultation
Cardiac: Regular Rhythm and S1/S2
GI: Soft and Tender; Negative Normal Bowel Sounds (absent BS)
Musculoskeletal: No Clubbing, No Cyanosis and No Edema
Neuro: Awake, Alert and Oriented
--- NOTE | 2024-02-12 08:22 | PTCARENOTE ---
Received pt this am in bed with ngt to liws, pt c/o abd pain with movement and stiffness across his shoulders. Pretty and rogers removed. Pt assisted oob to chair with minimal difficulty.
[2024-02-12] MEDS: OFIRMEV 100 IV (09:20)
--- NOTE | 2024-02-12 09:45 | PN.CDI ---
CDI
- -
CDI:
Physician Documentation Request
Admit Date: 02/10/24 22:55
Dear Doctor Aimee,
Clinical Indicators:
Patient admitted with small bowel obstruction with ischemia/necrosis; s/p small bowel resection 02/10.
02/10 Photographers' Model PN, 'Shock: Possibly hypovolemic/septic.'
Lactic acid:
02/10/24
23:00
Lactic Acid 4.3 H*
02/10 Levophed requirements: 2 -16 mcg/min.
Please clarify which of the following is the most likely etiology of the above symptoms and treatment rendered:
Septic shock
Hypovolemic shock
Postoperative shock, type unknown
Other, please specify
Use of terms such as suspected, likely, concern for, or probable (associated with a specific diagnosis that is being evaluated, monitored, or treated as if it exists) are acceptable and can be coded in the inpatient setting, when documented at the
time of discharge.
Thank you,
Sylwia Esposito RN BSN
CDI Specialist
available via tiger text
Please use your independent medical judgment in providing your response.
--- NOTE | 2024-02-12 10:02 | PN.CDI ---
CDI
- -
CDI:
Physician Documentation Request
Admit Date: 02/10/24 22:55
Dear Doctor Aimee,
Clinical Indicators:
Patient admitted with small bowel obstruction with ischemia/necrosis; s/p small bowel resection 02/10.
Patient hypotensive, on Levophed post op.
Cr/GFr trend:
02/11/24 02/11/24
03:20 12:24
Creatinine 1.0 1.5 H
eGFR > 60.00 50.71
Please clarify which of the following accurately represents the patient's renal status:
ROBIN
Rise in creatinine only
Other, please specify
Criteria for ROBIN*
1 Increase in serum creatinine by > or = to 0.3 mg/dL (> or = to 26.5 micromol/L) within 48 hours, OR
2 Increase in serum creatinine to > or = to 1.5 times baseline, which is known or presumed to have occurred within 7 days, OR
3 Urine volume < 0.5 nL/kg/hour for six hours
Use of terms such as suspected, likely, concern for, or probable (associated with a specific diagnosis that is being evaluated, monitored, or treated as if it exists) are acceptable and can be coded in the inpatient setting, when documented at the
time of discharge.
Thank you,
Sylwia Esposito RN BSN
CDI Specialist
available via tiger text
Please use your independent medical judgment in providing your response.
*Source: Kidney Disease: Improving Global Outcomes (KDIGO) 2012
--- NOTE | 2024-02-12 10:24 | W.PN.INTV ---
Today's Communication / Plan
Recommendations
Continue postoperative care
Monitor electrolytes
N.p.o. for now
IV fluids
Nocturnal CPAP
Transfer to floors
Sign off
Assessment
-
Small bowel closed-loop obstruction with ischemia: Status post emergent expiratory laparotomy and small bowel resection.
Postoperative mechanical ventilation
Shock: Possibly hypovolemic/septic.
Non-anion gap metabolic acidosis/hyperkalemia
-
Conditions present prior admission
Gout
Hypertension
GERD
Hypercholesterolemia
Prior history of hernia repair in 2019
-
Assessment and plan:
-
Hemodynamically stable overnight.
Extubated 02/11/2024, respiratory frye stable as well.
Clear lung exam.
-
Continue postoperative care.
Continue current antibiotics levofloxacin/metronidazole
Follow cultures
-
General surgery following the patient
-
History of obstructive sleep apnea: CPAP when able.
-
N.p.o. for now, until bowel function returns.
Continue IV fluids.
Monitor electrolytes.
Head of elevation
Diet per surgery
Continue PPI for GI prophylaxis.
-
DVT prophylaxis subcu Lovenox for
-
Transfer to floors. Critical care team will sign off.
Please call pulmonary if any respiratory issues arise.
Subjective Dataa
Subjective Data
Date of Service:
Date of Service: February 12, 2024
Chief Complaint: [employer] Policy Specialist Follow Up (Status post exploratory laparotomy)
Subjective:
Stable hemodynamically overnight.
Pain is controlled
Denies nausea or vomiting
Denies shortness of breath
Review of Systems
General: Fever (n)
Cardiopulmonary: Dyspnea (n), Cough (n) and Chest Pain (n)
GI: Abdominal Pain, Nausea (n) and Vomiting (n)
Objective Data
Data Reviewed
Vital Signs / I&O / Oxygen:
Vital Signs
Temp Pulse Resp BP Pulse Ox
98.0 F 91 19 125/76 95
02/12/24 07:43 02/12/24 09:00 02/12/24 09:00 02/12/24 08:19 02/12/24 08:00
Intake and Output
02/11/24 02/12/24 02/13/24
06:59 06:59 06:59
Intake Total 3097.5 / 3247.5 4310.0 / 4460.0 430 / 430
Output Total 995 / 1035 2275 / 2275 125 / 125
Balance 2102.5 / 2212.5 2035.0 / 2185.0 305 / 305
SaO2 [A/C] 98
SaO2 95
Nasal Cannula flow liters per 4
minute
Physical Exam
General: Respiratory Distress (n) and Comfortable
HEENT: Normocephalic
Cardiovascular: S1-S2
Respiratory: Clear and Non-Labored Respirations
GI: Soft, Other (Incision is intact) and Other (Decreased bowel sounds)
Neurology: Awake, Alert, Oriented, AO x 3 and No Motor Deficits
Labs/Micro/Reports
Lab Data
02/12/24 04:50
02/12/24 04:50
Microbiology
02/10/24 20:04 Blood/Venous Blood Culture - Preliminary
No Growth in 24 hours- Final report to follow
02/10/24 20:04 Blood/Venous Blood Culture - Preliminary
No Growth in 24 hours- Final report to follow
[2024-02-12 11:48] LABS: Magnesium 1.8 mg/dl (1.6-2.3)
--- NOTE | 2024-02-12 12:00 | PTCARENOTE ---
Addendum entered by Abeba Tan RN 02/12/24 13:30:
Pain well controlled
Original Note:
Pt up in chair t/o morning. No flatus yet, but some belching. Did ambulate in hallway with walker with therapy. Otherwise no changes.
--- NOTE | 2024-02-12 14:38 | PTCARENOTE ---
Report called to floor, pt transferred with ivf and his belongings in wheelchair. Pt notified his . No complaints at time of transfer.
--- NOTE | 2024-02-12 15:15 | PTCARENOTE ---
Pt received from ICU with RN at bedside, LIZZETH, ambulated with assistance of PCT and rolling walker to chair, NGT in left nare connected to intermittent suction, pt resting comfortably with call fernández within reach at this time.
--- NOTE | 2024-02-12 16:16 | CM ---
CM following re: discharge planning.
Reviewed pt's chart, met with pt.
PT and OT evaluations noted - home PT/OT recommended. Pt is aware and he politely declined home PT/OT stating: I will be fine with my family'.
IMM reviewed, placed in chart, pt has a copy.
D/C plan: home with no needs. Spouse to transport at discharge.
CM will follow with discharge plan updates as hospitalization progresses
[2024-02-12] MEDS: LOVENOX 40 MG SC (18:31)
[2024-02-12] MEDS: DILAUDID 0.5 MG IV (21:38)
[2024-02-12] MEDS: PEPCID 20 MG IV (21:39)
[2024-02-12] MEDS: LEVAQUIN 150 IV (21:39)
[2024-02-12] MEDS: NSS (PRESERVATIVE FREE) 8 ML IV (21:39)
[2024-02-13] MEDS: NSS 1000 IV ×2 (00:05→12:16)
[2024-02-13 03:07] VITALS: BP 127/88
[2024-02-13] MEDS: FLAGYL 500 MG 100 IV ×3 (04:15→19:41)
[2024-02-13 07:01] LABS: % Immature Granulocytes 0.5 % (0-0.5); % Lymphocytes 3.6 % (20.5-51.1); % Monocytes 7.4 % (1.7-9.3); % Neutrophils 88.5 % (42.2-75.2); Absolute Immature Granulocytes 0.1 10^3/uL (0-0.05); Absolute Lymphocytes 0.4 10^3/uL (1.2-3.4); Absolute Monocytes 0.8 10^3/uL (0.1-0.6); Absolute Neutrophils 9.2 10^3/uL (1.4-6.5); Hematocrit 40.3 % (39.0-52.0); Hemoglobin 13.3 g/dL (13.0-18.0); Mean Corpuscular Hgb 29.3 pg (27.0-31.0); Mean Corpuscular Volume 88.8 fL (80.0-94.0); Mean Platelet Volume 9.7 fL (7.4-10.4); Nucleated Red Blood Cells % 0 % (-); Platelet Count 172 10^3/uL (130-400); Red Blood Cell Count 4.54 10^6/uL (4.70-6.10); Red Cell Dist. Width 13.6 % (11.5-14.5); White Blood Cell Count 10.3 10^3/uL (4.8-10.8)
[2024-02-13 07:22] LABS: ALT (SGPT) 16 U/L (0-50); AST (SGOT) 25 U/L (17-59); Albumin 2.7 g/dl (3.5-5.0); Alkaline Phosphatase 60 U/L (38-126); Blood Urea Nitrogen 41 mg/dl (9-20); Calcium 8.4 mg/dl (8.4-10.2); Carbon Dioxide 24 mmol/L (22-30); Chloride 107 mmol/L (98-107); Estimated Creatinine Clearance 69 ml/min; Glucose 100 mg/dl (70-99); Magnesium 2.3 mg/dl (1.6-2.3); Potassium 3.8 mmol/L (3.5-5.1); Sodium 136 mmol/L (135-145); Total Bilirubin 0.7 mg/dl (0.2-1.3); Total Protein 4.8 g/dl (6.3-8.2); eGFR > 60.00
[2024-02-13 07:55] VITALS: BP 127/78
[2024-02-13] MEDS: NSS IV ×2 (08:06→16:17)
[2024-02-13 08:07] LABS: Triglycerides 86 mg/dl (10-149)
[2024-02-13 08:21] LABS: Prealbumin (Transthyretin) 12.2 mg/dl (17.6-36.0)
--- NOTE | 2024-02-13 09:49 | W.PN.GS2 ---
Addendum entered and electronically signed by Kyle Schuster MD 02/13/24 12:27:
I saw and examined the patient independently.
The resident's note was reviewed and I agree with the note, assessment and plan except where noted below.
Comment: 68-year-old male POD #4 status post XL, long segment SBR for volvulized bowel with roughly 175 cm. Expected ileus and anticipate potential development of short gut syndrome.
Continue NG to low intermittent wall suction
N.p.o., IV fluids
PICC ordered will plan to start TPN today versus tomorrow
Chest x-ray to confirm NG placement and assess lungs given his dyspnea.
General surgery will continue to follow.
Original Note:
Today's Communication / Plan
-
Chest x ray
Plan to start TPN
Assessment / Plan
-
68 yo M, diagnosed with closed-loop small bowel obstruction from single band adhesion, s/p exploratory laparotomy with small bowel resection. POD#3
Assesment:
Post operative ileus
Risk of short gut syndrome
Dyspnea
Plan:
# Post operative ileus
NPO
NGT to LIWS, NGT output -650 ml in the last 12 hrs, monitor.
Advanced the NG tube and resecured it as there was scant output in the suction canister since morning after emptying.
Chest ray for NGT positioning.
PT
OOB
# Risk for short gut syndrome
135cm of small bowel resected during laparotomy, leaving approximately 175 cm of small bowel
pre-albumin 12.2
Plan to start TPN.
#Dyspnea
chest x ray.
#Leucocytosis trending down, WBC at 10.3
Continue IV abx- Metronidazole, Levofloxacin
#PRN pain control, PRN anti-emetics
#DVT prophylaxis- Lovenox
Subjective Data
-
Date of Service: February 13, 2024
Patient reports having chest discomfort, shortness of breath, sore throat, cough and mild swelling in bilateral upper extremities.
Patient reports that he felt his NGT was pulled out a little yesterday.
No fever/ chills , did not pass flatus/ no bowel movements.
Incisional pain well controlled.
Objective Data
-
Intake and Output
02/12/24 02/13/24 02/14/24
06:59 06:59 06:59
Intake Total 4310.0 / 4460.0 2580 / 2580
Output Total 2275 / 2275 1825 / 1825
Balance 2035.0 / 2185.0 755 / 755
Intake:
Oral fluids 30 / 30
IV fluids (Total) 3770.0 / 3920.0 1999 / 1999
0.45%NaCl 1,000 ml @ 100 mls/hr 800 / 800
IV .[id number] KRISTIN with Sodium
Bicarbonate 75 Meq Rx#:[id number]
Fentanyl 0 / 0
Levophed 165.0 / 165.0
Nss 1,000 ml @ 100 mls/hr IV . 800 / 800
Q10H KRISTIN Rx#:[id number]
Propofol 5 / 5
nss 2800 / 2800
IV piggybacks 450 / 450 400 / 400
Amount instilled into GI Tube ( 90 / 90 150 / 150
Total)
[place] Sump 90 / 90 150 / 150
Output:
Gastrointestinal tube output ( 1600 / 1600 625 / 625
Total)
[place] Sump 1600 / 1600 625 / 625
Urine, Pretty 675 / 675 125 / 125
Urine, Voided 1075 / 1075
Vital Signs
Temp Pulse Resp BP Pulse Ox
99.2 F 83 16 127/78 93
02/13/24 07:55 02/13/24 07:55 02/13/24 07:55 02/13/24 07:55 02/13/24 07:55
Lab Results
02/13/24 06:48
02/13/24 06:48
Calcium 8.4 mg/dl (8.4-10.2) 02/13/24 06:48
Phosphorus 3.9 mg/dl (2.5-4.5) 02/11/24 03:20
Magnesium 2.3 mg/dl (1.6-2.3) 02/13/24 06:48
Total Bilirubin 0.7 mg/dl (0.2-1.3) 02/13/24 06:48
AST 25 U/L (17-59) 02/13/24 06:48
ALT 16 U/L (0-50) 02/13/24 06:48
Alkaline Phosphatase 60 U/L (38-126) 02/13/24 06:48
Total Protein 4.8 g/dl (6.3-8.2) L 02/13/24 06:48
Albumin 2.7 g/dl (3.5-5.0) L 02/13/24 06:48
Physical Exam
-
Respiratory: Clear to Auscultation bilaterally
Cardiac: Regular Rhythm and S1/S2 +
GI: Soft, tender, mildly distended, midline incision in aquacel dressing.
Musculoskeletal: 1+ non pitting edema in the hands bilaterally
Neuro: Awake, Alert and Oriented X 3
--- NOTE | 2024-02-13 10:08 | CM ---
Reviewed the chart notes and spoke with the patient at the bedside. NPO and NGT to wall suction continues. CM continues to be available to patient/family and is monitoring medical plan for needs at discharge.
Plan: Discharge plans will depend on progress. Hopefully home with no needs.
[2024-02-13 10:14] VITALS: BMI 28.7
[2024-02-13 11:05] VITALS: BP 153/80
[2024-02-13 11:46] LABS: Glucose - Point of Care 83 mg/dl (70-99)
[2024-02-13 11:48] VITALS: BMI 28.0
--- NOTE | 2024-02-13 12:27 | W.PN.HOSP.TC ---
Today's Communication/Plan
-
TPN to start tonight
continue IVF
Assessment / Plan
Assessment / Plan
# Small bowel closed-loop obstruction with ischemia possibly secondary to internal hernia/volvulus surgery consulted and underwent small bowel resection
POD#4
WBC 14.7-->10.4-->12.9-->10.3
Hgb 18.2-->18.3-->14.5-->13.3
# Associated slight twisting of adjacent distal transverse/proximal descending colon without colonic obstruction
-N.p.o. including oral medications, still with post op ileus
surgery plans to start TPN
-NG tube placed
-Blood cultures NGTD x2
-IV fluids
to transition to TPN
-Levaquin/Flagyl
-Zofran, Dilaudid as needed
ROBIN
Most likely from septic shock
BUN/Creat 21/1.0-->26/1.0-->36/1.5-->47/1.3-->41/1.0
Freq PVC's (1-3 per minute) Pt states always has this and goes to cardio at [place] yearly for this and was told it was benign
Lactic Acidosis better
2.3-->4.3-->2.0
Septic shock
most likely from bacterial translocation, fully resolved
# Essential hypertension
currently normotensive, 127/78-153/80
-Hold amlodipine, lisinopril/thiazide,as pt NPO
-As needed hydralazine
GERD
continue Pepcid IV
Gout
-Hold allopurinol
Full code
DVT prophylaxis�SCDs
N.p.o.
transferred to tele
reviewed with at bedside
Anticipated Discharge: > 48 hours
Subjective/Interval History
-
Date of Service: February 13, 2024
Awake, sitting up in chair, alert, conversant
Objective Data
-
Labs:
Laboratory Results
02/13/24
06:48
WBC 10.3
Hgb 13.3
Hct 40.3
Plt Count 172
Sodium 136
Potassium 3.8
Chloride 107
Carbon Dioxide 24
BUN 41 H
Creatinine 1.0
Glucose 100 H
Calcium 8.4
Total Bilirubin 0.7
AST 25
ALT 16
Alkaline Phosphatase 60
Vital Signs:
Vital Signs
Temp Pulse Resp BP Pulse Ox
97.7 F 71 18 153/80 96
02/13/24 11:05 02/13/24 11:05 02/13/24 11:05 02/13/24 11:05 02/13/24 11:05
I&O
02/12/24 02/13/24 02/14/24
06:59 06:59 06:59
Intake Total 4310.0 / 4460.0 2580 / 2580 100 / 100
Output Total 2275 / 2275 1825 / 1825
Balance 2035.0 / 2185.0 755 / 755 100 / 100
Review of Systems
-
History Source: Patient, Physician (reviewed with Dr. Taveras) and Coordinated Provider
Constitutional: Denies Fever
EENT: Reports Other (NG tube in place)
Respiratory: Reports No Symptoms; Denies Cough or Trouble Breathing
Cardiac: Reports No Symptoms; Denies Chest Pain
Abdomen/GI: Reports Abdominal Pain and Constipated (no flatus); Denies Nausea or Vomiting
Genitourinary: Reports Other (ruby just removed)
Musculoskeletal: Reports No Symptoms
Neuro: Reports No Symptoms
Physical Exam
-
General: Well Developed, Well Nourished and No Apparent Distress
HEENT: Atraumatic, Moist Mucous Membranes and Other (NG tube in place)
Respiratory: Clear to Auscultation
Cardiac: Regular Rhythm and S1/S2
GI: Soft and Tender; Negative Normal Bowel Sounds (absent BS)
Musculoskeletal: No Clubbing, No Cyanosis and No Edema
Neuro: Awake, Alert and Oriented
[2024-02-13 12:55] VITALS: BP 146/74; PULSE 69; O2SAT 97
[2024-02-13 15:09] VITALS: BP 144/73
--- NOTE | 2024-02-13 15:46 | PN.CDI ---
CDI
- -
CDI:
Physician Documentation Request
Admit Date: 02/10/24 22:55
Dear Doctor Aimee,
Clinical Indicators:
Patient admitted with small bowel obstruction with ischemia/necrosis; s/p small bowel resection 02/10.
5/ PN, 'septic shock most likely from bacterial translocation, fully resolved'
WBC on admission:
02/10/24
19:23
WBC 14.7 H
Lactic Acid levels:
02/10/24 02/10/24
20:04 23:00
Lactic Acid 2.3 H 4.3 H*
HR/RR on admission:
02/10/24
22:33 02/10/24
22:35 02/10/24
23:00
Pulse 96 90
Resp Rate 26 23
02/10/24
23:26
Pulse 97
Resp Rate 24
Please clarify the following:
Sepsis was present on admission
Sepsis was not present on admission
Other
Use of terms such as suspected, likely, concern for, or probable (associated with a specific diagnosis that is being evaluated, monitored, or treated as if it exists) are acceptable and can be coded in the inpatient setting, when documented at the
time of discharge.
Thank you,
JORY Sr RN
CDI Specialist
available via tiger text
Please use your independent medical judgment in providing your response.
--- NOTE | 2024-02-13 16:02 | PN.CDI ---
CDI
- -
CDI:
Physician Documentation Request
Admit Date: 02/10/24 22:55
Dear Doctor Aimee,
Clinical Indicators:
Patient admitted with small bowel obstruction with ischemia/necrosis; s/p small bowel resection 02/10.
IVF: NSS bolus + maintenance fluids given.
Sodium levels:
02/11/24 02/11/24 02/12/24
03:20 12:24 04:50
Sodium 131 L 131 L 134 L
Based on the above, could you clarify in the progress notes, the appropriate diagnosis, if significant, that supports the above abnormalities and additional evaluation, monitoring and/or treatment rendered:
Hyponatremia
Abnormal lab values, clinically insignificant
Other, please specify
Use of terms such as suspected, likely, concern for, or probable (associated with a specific diagnosis that is being evaluated, monitored, or treated as if it exists) are acceptable and can be coded in the inpatient setting, when documented at the
time of discharge.
Thank you,
JORY Sr RN
CDI Specialist
available via tiger text
Please use your independent medical judgment in providing your response.
[2024-02-13] MEDS: LOVENOX 40 MG SC (17:12)
[2024-02-13 18:13] LABS: Glucose - Point of Care 81 mg/dl (70-99)
[2024-02-13] MEDS: Parenteral Nutrition, Central 1800 IV (20:35)
[2024-02-13 20:45] VITALS: BMI 28.1
[2024-02-13] MEDS: PEPCID 20 MG IV (21:43)
[2024-02-13] MEDS: NSS (PRESERVATIVE FREE) 8 ML IV (21:43)
[2024-02-13] MEDS: LEVAQUIN 150 IV (21:43)
[2024-02-13 23:57] VITALS: BP 150/70
[2024-02-14 00:06] LABS: Glucose - Point of Care 100 mg/dl (70-99)
[2024-02-14] MEDS: FLAGYL 500 MG 100 IV ×3 (03:23→19:31)
[2024-02-14 05:45] LABS: Magnesium 2.4 mg/dl (1.6-2.3); Phosphorus 2.2 mg/dl (2.5-4.5); Triglycerides 100 mg/dl (10-149)
[2024-02-14 05:59] LABS: Glucose - Point of Care 93 mg/dl (70-99)
[2024-02-14 07:40] VITALS: BP 153/88
[2024-02-14 08:27] LABS: ALT (SGPT) 14 U/L (0-50); AST (SGOT) 20 U/L (17-59); Albumin 2.5 g/dl (3.5-5.0); Alkaline Phosphatase 55 U/L (38-126); Blood Urea Nitrogen 31 mg/dl (9-20); Calcium 8.4 mg/dl (8.4-10.2); Carbon Dioxide 25 mmol/L (22-30); Chloride 107 mmol/L (98-107); Estimated Creatinine Clearance 77 ml/min; Glucose 107 mg/dl (70-99); Potassium 3.4 mmol/L (3.5-5.1); Sodium 136 mmol/L (135-145); Total Bilirubin 0.8 mg/dl (0.2-1.3); Total Protein 4.5 g/dl (6.3-8.2); eGFR > 60.00
--- NOTE | 2024-02-14 10:07 | W.PN.HOSP.TC ---
Today's Communication/Plan
-
continue NG tube, TPN
Assessment / Plan
Assessment / Plan
# Small bowel closed-loop obstruction with ischemia possibly secondary to internal hernia/volvulus surgery consulted and underwent small bowel resection
POD#5
Post op ileus, but noted scattered BS today
WBC 14.7-->10.4-->12.9-->10.3
Hgb 18.2-->18.3-->14.5-->13.3
# Associated slight twisting of adjacent distal transverse/proximal descending colon without colonic obstruction
-N.p.o. including oral medications, still with post op ileus
surgery started TPN
-NG tube placed
-Blood cultures NGTD x2
-Levaquin/Flagyl
-Zofran, Dilaudid as needed
AKIMost likely from septic shock
BUN/Creat 21/1.0-->26/1.0-->36/1.5-->47/1.3-->41/1.0-->31/0.9
Freq PVC's (1-3 per minute) Pt states always has this and goes to cardio at [place] yearly for this and was told it was benign
Lactic Acidosis better
2.3-->4.3-->2.0
Septic shock most likely from bacterial translocation, fully resolved
# Essential hypertension
currently normotensive, 127/78-153/88
-Hold amlodipine, lisinopril/thiazide,as pt NPO
-As needed hydralazine
GERD
continue Pepcid IV
Gout
-Hold allopurinol
Full code
DVT prophylaxis�SCDs
N.p.o.
transferred to [facility], walking around the unit
reviewed with at bedside
Anticipated Discharge: > 48 hours
Subjective/Interval History
-
Date of Service: February 14, 2024
Generally feeling a little better today, no flatus, but did feel a little rumbling
Objective Data
-
Labs:
Laboratory Results
02/14/24
04:57
Sodium 136
Potassium 3.4 L
Chloride 107
Carbon Dioxide 25
BUN 31 H
Creatinine 0.9
Glucose 107 H
Calcium 8.4
Total Bilirubin 0.8
AST 20
ALT 14
Alkaline Phosphatase 55
Vital Signs:
Vital Signs
Temp Pulse Resp BP Pulse Ox
99.1 F 75 20 153/88 94
02/14/24 07:40 02/14/24 07:40 02/14/24 07:40 02/14/24 07:40 02/14/24 07:40
I&O
02/13/24 02/14/24 02/15/24
06:59 06:59 06:59
Intake Total 2580 / 2580 1275 / 1275 90 / 90
Output Total 1825 / 1825 1125 / 1125 300 / 300
Balance 755 / 755 150 / 150 -210 / -210
Review of Systems
-
History Source: Patient, Physician (reviewed with Dr. Taveras) and Coordinated Provider
Constitutional: Denies Fever
EENT: Reports Other (NG tube in place)
Respiratory: Reports No Symptoms; Denies Cough or Trouble Breathing
Cardiac: Reports No Symptoms; Denies Chest Pain
Abdomen/GI: Reports Abdominal Pain and Constipated (no flatus); Denies Nausea or Vomiting
Genitourinary: Reports Other (ruby removed, passing urine without difficulty)
Musculoskeletal: Reports No Symptoms
Neuro: Reports No Symptoms
Physical Exam
-
General: Well Developed, Well Nourished and No Apparent Distress
HEENT: Atraumatic, Moist Mucous Membranes and Other (NG tube in place)
Respiratory: Clear to Auscultation
Cardiac: Regular Rhythm and S1/S2
GI: Soft and Tender; Negative Normal Bowel Sounds (scattered rare BS)
Musculoskeletal: No Clubbing, No Cyanosis and No Edema
Neuro: Awake, Alert and Oriented
--- NOTE | 2024-02-14 11:10 | W.PN.GS2 ---
Today's Communication / Plan
-
Continue NPO/NGT
Renew TPN
Assessment / Plan
-
68 yo male who is POD #4 dx lap to ex lap with SBR (135cm) for closed loop SBO secondary to band adhesion
AFVSS
Ileus noted, await return of bowel function
Risk for development of short gut syndrome
TPN initiated on 02/12, electrolytes stable
NGT repositioned on 02/12, follow up xr with tip in good position in stomach
--Continue NPO with NGT until ROBF
--Continue TPN, nutriton following with us
--OOB/Ambulate as able
--Analgesics prn
--Continued on abx through today
--Lovenox for VTE ppx
Medical management as pr primary team
Subjective Data
-
Date of Service: February 14, 2024
Patient seen and examined at bedside with Dr. Bess. Denies n/v. No passage of flatus as of yet. Feeling a bit more comfortable today but still with pain with movement.
Objective Data
-
Intake and Output
02/13/24 02/14/24 02/15/24
06:59 06:59 06:59
Intake Total 2580 / 2580 1275 / 1275 90 / 90
Output Total 1825 / 1825 1125 / 1125 300 / 300
Balance 755 / 755 150 / 150 -210 / -210
Intake:
Oral fluids 30 / 30
IV fluids (Total) 1999 / 1999 1085 / 1085
Nss 1,000 ml @ 100 mls/hr IV . 800 / 800
Q10H KRISTIN Rx#:[id number]
IV piggybacks 400 / 400 100 / 100
Amount instilled into GI Tube ( 150 / 150 90 / 90 90 / 90
Total)
[place] Sump 150 / 150 90 / 90 90 / 90
Output:
Gastrointestinal tube output ( 625 / 625 150 / 150 300 / 300
Total)
[place] Sump 625 / 625 150 / 150 300 / 300
Urine, Pretty 125 / 125
Urine, Voided 1075 / 1075 975 / 975
Vital Signs
Temp Pulse Resp BP Pulse Ox
99.1 F 75 20 153/88 94
02/14/24 07:40 02/14/24 07:40 02/14/24 07:40 02/14/24 07:40 02/14/24 07:40
Lab Results
02/13/24 06:48
02/14/24 04:57
Calcium 8.4 mg/dl (8.4-10.2) 02/14/24 04:57
Phosphorus 2.2 mg/dl (2.5-4.5) L 02/14/24 04:57
Magnesium 2.4 mg/dl (1.6-2.3) H 02/14/24 04:57
Total Bilirubin 0.8 mg/dl (0.2-1.3) 02/14/24 04:57
AST 20 U/L (17-59) 02/14/24 04:57
ALT 14 U/L (0-50) 02/14/24 04:57
Alkaline Phosphatase 55 U/L (38-126) 02/14/24 04:57
Total Protein 4.5 g/dl (6.3-8.2) L 02/14/24 04:57
Albumin 2.5 g/dl (3.5-5.0) L 02/14/24 04:57
Physical Exam
-
NAD
ABD soft, mild distention, expected tenderness, LEATHERSMITH, NGT with light outputs
Incision well approximated with intact cleopatra
[2024-02-14 11:30] VITALS: BP 150/91
[2024-02-14 12:52] LABS: Glucose - Point of Care 111 mg/dl (70-99)
[2024-02-14 15:35] VITALS: BP 149/91
[2024-02-14 17:35] LABS: Glucose - Point of Care 108 mg/dl (70-99)
[2024-02-14] MEDS: OFIRMEV 100 IV (17:41)
[2024-02-14] MEDS: LOVENOX 40 MG SC (17:42)
[2024-02-14 19:28] VITALS: BP 154/93
[2024-02-14] MEDS: Parenteral Nutrition, Central 1500 IV (21:00)
[2024-02-14] MEDS: LEVAQUIN 150 IV (21:19)
[2024-02-14] MEDS: NSS (PRESERVATIVE FREE) 8 ML IV (21:20)
[2024-02-14] MEDS: PEPCID 20 MG IV (21:21)
[2024-02-14 23:18] VITALS: BP 153/95
[2024-02-15] VITALS (7 sets, daily range): BP systolic 146–165; BP diastolic 87–95; BMI 28.0
[2024-02-15 00:13] LABS: Glucose - Point of Care 142 mg/dl (70-99)
[2024-02-15] MEDS: FLAGYL 500 MG 100 IV ×3 (04:31→20:17)
[2024-02-15 04:39] LABS: Hematocrit 36.2 % (39.0-52.0); Hemoglobin 12.1 g/dL (13.0-18.0); Mean Corp Hgb Conc. 33.4 g/dL (33.0-37.0); Mean Corpuscular Hgb 29.4 pg (27.0-31.0); Mean Corpuscular Volume 88.1 fL (80.0-94.0); Mean Platelet Volume 9.5 fL (7.4-10.4); Platelet Count 177 10^3/uL (130-400); Red Blood Cell Count 4.11 10^6/uL (4.70-6.10); Red Cell Dist. Width 13.2 % (11.5-14.5); White Blood Cell Count 7.8 10^3/uL (4.8-10.8)
[2024-02-15 05:02] LABS: Blood Urea Nitrogen 30 mg/dl (9-20); Calcium 8.1 mg/dl (8.4-10.2); Carbon Dioxide 27 mmol/L (22-30); Chloride 107 mmol/L (98-107); Estimated Creatinine Clearance 99 ml/min; Glucose 139 mg/dl (70-99); Magnesium 2.2 mg/dl (1.6-2.3); Phosphorus 2.9 mg/dl (2.5-4.5); Potassium 3.3 mmol/L (3.5-5.1); Sodium 134 mmol/L (135-145); eGFR > 60.00
[2024-02-15 06:30] LABS: Glucose - Point of Care 115 mg/dl (70-99)
[2024-02-15] MEDS: KCL 100 IV (09:24)
--- NOTE | 2024-02-15 09:57 | W.PN.GS2 ---
Addendum entered and electronically signed by Az Bess MD 02/15/24 14:06:
I saw and examined the patient.
The CLEAN RICE GRADER AND REEL TENDER's note was reviewed and I agree with the note.
Comment:
Seen with CLE[employer]ICE GRADER AND REEL TENDER.
Loose BMs. No flatus. Yan nausea.
Tm 100.2. WBC normal.
Abomen mildly distended.
Continue NGT/IVFs.
Continue TPN.
Original Note:
Today's Communication / Plan
-
NGT
TPN
Assessment / Plan
-
68 yo male who is POD #5 dx lap to ex lap with SBR (135cm) for closed loop SBO secondary to band adhesion
Low grade temp of 100.2, no leukocytosis
VSS
Ileus starting to resolve with some loose bm's overnight but not much flatus
Risk for development of short gut syndrome, currently on TPN
Hypokalemia noted secondary to gi losses, replaced
NGT with minimal outputs
--Continue NPO with NGT. Clamp trial once passing more flatus/exam improved.
--Continue TPN, nutrition following with us
--OOB/Ambulate as able
--Analgesics prn
--Continue abx
--Lovenox for VTE ppx
Medical management as pr primary team
Subjective Data
-
Date of Service: February 15, 2024
Patient seen and examined at bedside. Denies nausea but feels bloated. Passing liquid stools overnight, but not much flatus. Abdominal discomfort with movement.
Objective Data
-
Intake and Output
02/14/24 02/15/24 02/16/24
06:59 06:59 06:59
Intake Total 1275 / 1275 1576 / 1576
Output Total 1125 / 1125 1690 / 1690
Balance 150 / 150 -114 / -114
Intake:
Oral fluids 200 / 200
IV fluids (Total) 1085 / 1085
IV piggybacks 100 / 100 420 / 420
TPN/PPN 776 / 776
Amount instilled into GI Tube ( 90 / 90 180 / 180
Total)
[place] Sump 90 / 90 180 / 180
Output:
Gastrointestinal tube output ( 150 / 150 500 / 500
Total)
[place] Sump 150 / 150 500 / 500
Urine, Voided 975 / 975 1190 / 1190
Other:
Number of unmeasured liquid
stools
Rectum 5
Vital Signs
Temp Pulse Resp BP Pulse Ox
98.0 F 77 16 165/90 95
02/15/24 07:40 02/15/24 07:40 02/15/24 07:40 02/15/24 07:40 02/15/24 07:40
Lab Results
02/15/24 04:17
02/15/24 04:17
Calcium 8.1 mg/dl (8.4-10.2) L 02/15/24 04:17
Phosphorus 2.9 mg/dl (2.5-4.5) 02/15/24 04:17
Magnesium 2.2 mg/dl (1.6-2.3) 02/15/24 04:17
Total Bilirubin 0.8 mg/dl (0.2-1.3) 02/14/24 04:57
AST 20 U/L (17-59) 02/14/24 04:57
ALT 14 U/L (0-50) 02/14/24 04:57
Alkaline Phosphatase 55 U/L (38-126) 02/14/24 04:57
Total Protein 4.5 g/dl (6.3-8.2) L 02/14/24 04:57
Albumin 2.5 g/dl (3.5-5.0) L 05/04/24 04:57
Physical Exam
-
NAD
ABD soft, mild distention, expected tenderness, [employer]ER [employer]EL TENDER, NGT with light green outputs
Incision well approximated with intact cleopatra
--- NOTE | 2024-02-15 16:35 | W.PN.HOSP.TC ---
Today's Communication/Plan
-
continue TPN
Assessment / Plan
Assessment / Plan
# Small bowel closed-loop obstruction with ischemia possibly secondary to internal hernia/volvulus surgery consulted and underwent small bowel resection
Post op ileus, but noted scattered BS today
WBC 14.7-->10.4-->12.9-->10.3-->7.8
Hgb 18.2-->18.3-->14.5-->13.3-->12.1
# Associated slight twisting of adjacent distal transverse/proximal descending colon without colonic obstruction
-N.p.o. including oral medications, still with post op ileus
surgery started TPN
-NG tube placed, clamping trial started
-Blood cultures NGTD x2
-Levaquin/Flagyl
-Zofran, Dilaudid as needed
ROBIN Most likely from septic shock
BUN/Creat 21/1.0-->26/1.0-->36/1.5-->47/1.3-->41/1.0-->31/0.9-->30/0.7
Freq PVC's (1-3 per minute) Pt states always has this and goes to cardio at [place] yearly for this and was told it was benign
Lactic Acidosis better
2.3-->4.3-->2.0
Hyponatremia
better
Septic shock most likely from bacterial translocation, fully resolved
Sepsis was present on admission
# Essential hypertension
currently normotensive, 154/88
-Hold amlodipine, lisinopril/thiazide,as pt NPO
-As needed hydralazine
GERD
continue Pepcid IV
Gout
-Hold allopurinol
Full code
DVT prophylaxis�SCDs
N.p.o.
transferred to tele, walking around the unit
Anticipated Discharge: > 48 hours
Subjective/Interval History
-
Date of Service: February 15, 2024
felt stomach rumbling
Objective Data
-
Labs:
Laboratory Results
02/15/24
04:17
WBC 7.8
Hgb 12.1 L
Hct 36.2 L
Plt Count 177
Sodium 134 L
Potassium 3.3 L
Chloride 107
Carbon Dioxide 27
BUN 30 H
Creatinine 0.7
Glucose 139 H
Calcium 8.1 L
Vital Signs:
Vital Signs
Temp Pulse Resp BP Pulse Ox
97.8 F 68 16 154/88 97
02/15/24 15:25 02/15/24 15:25 02/15/24 15:25 02/15/24 15:25 02/15/24 15:25
I&O
02/14/24 02/15/24 02/16/24
06:59 06:59 06:59
Intake Total 1275 / 1275 1576 / 1576
Output Total 1125 / 1125 1690 / 1690
Balance 150 / 150 -114 / -114
Review of Systems
-
History Source: Patient and Coordinated Provider
Constitutional: Denies Fever
EENT: Reports Other (NG tube in place)
Respiratory: Reports No Symptoms; Denies Cough or Trouble Breathing
Cardiac: Reports No Symptoms; Denies Chest Pain
Abdomen/GI: Reports Abdominal Pain (appears to be lessened) and Constipated (no flatus); Denies Nausea or Vomiting
Genitourinary: Reports Other (ruby removed, passing urine without difficulty)
Musculoskeletal: Reports No Symptoms
Neuro: Reports No Symptoms
Physical Exam
-
General: Well Developed, Well Nourished and No Apparent Distress
HEENT: Atraumatic, Moist Mucous Membranes and Other (NG tube in place)
Respiratory: Clear to Auscultation
Cardiac: Regular Rhythm and S1/S2
GI: Soft and Nontender (to light pressure); Negative Normal Bowel Sounds (scattered rare BS)
Musculoskeletal: No Clubbing, No Cyanosis and No Edema
Neuro: Awake, Alert and Oriented
[2024-02-15] MEDS: LOVENOX 40 MG SC (17:13)
[2024-02-15] MEDS: Parenteral Nutrition, Central 1500 IV (21:01)
[2024-02-15] MEDS: LEVAQUIN 150 IV (22:04)
[2024-02-15] MEDS: NSS (PRESERVATIVE FREE) 8 ML IV (22:05)
[2024-02-15] MEDS: PEPCID 20 MG IV (22:05)
[2024-02-15 23:42] LABS: Glucose - Point of Care 132 mg/dl (70-99)
[2024-02-16] VITALS (7 sets, daily range): BP systolic 135–155; BP diastolic 83–95; PULSE 65; O2SAT 97; BMI 28.3
[2024-02-16] MEDS: FLAGYL 500 MG 100 IV ×3 (03:48→20:21)
[2024-02-16 05:11] LABS: % Basophils 0.2 % (0-2); % Eosinophils 2.5 % (0-6); % Immature Granulocytes 3.2 % (0-0.5); % Lymphocytes 5.6 % (20.5-51.1); % Neutrophils 77.5 % (42.2-75.2); Absolute Eosinophils 0.2 10^3/uL (0-0.7); Absolute Immature Granulocytes 0.3 10^3/uL (0-0.05); Absolute Lymphocytes 0.5 10^3/uL (1.2-3.4); Absolute Monocytes 0.9 10^3/uL (0.1-0.6); Absolute Neutrophils 6.2 10^3/uL (1.4-6.5); Hematocrit 34.5 % (39.0-52.0); Hemoglobin 11.6 g/dL (13.0-18.0); Mean Corp Hgb Conc. 33.6 g/dL (33.0-37.0); Mean Corpuscular Volume 86.3 fL (80.0-94.0); Mean Platelet Volume 9.1 fL (7.4-10.4); Nucleated Red Blood Cells % 0 % (-); Platelet Count 177 10^3/uL (130-400); Red Cell Dist. Width 13.2 % (11.5-14.5)
[2024-02-16 05:41] LABS: ALT (SGPT) 16 U/L (0-50); AST (SGOT) 24 U/L (17-59); Albumin 2.4 g/dl (3.5-5.0); Alkaline Phosphatase 45 U/L (38-126); Blood Urea Nitrogen 27 mg/dl (9-20); Carbon Dioxide 26 mmol/L (22-30); Chloride 106 mmol/L (98-107); Estimated Creatinine Clearance 99 ml/min; Glucose 106 mg/dl (70-99); Magnesium 2.1 mg/dl (1.6-2.3); Phosphorus 3.5 mg/dl (2.5-4.5); Potassium 3.4 mmol/L (3.5-5.1); Sodium 137 mmol/L (135-145); Total Bilirubin 0.5 mg/dl (0.2-1.3); Total Protein 4.4 g/dl (6.3-8.2); Triglycerides 63 mg/dl (10-149); eGFR > 60.00
[2024-02-16 07:39] LABS: Glucose - Point of Care 119 mg/dl (70-99)
--- NOTE | 2024-02-16 08:45 | W.PN.GS2 ---
Today's Communication / Plan
-
Clears.
TPN reordered
Assessment / Plan
-
68 yo male who is POD #6 dx lap to ex lap with SBR (135cm) for closed loop SBO secondary to band adhesion. Expected ileus, now resolving.
--NG removed, tolerated sips and chips, will advance to clears today. Go slow.
--Continue TPN, increase potassium. Nutrition following with us
--OOB/Ambulate as able
--Analgesics prn
--Continue abx
--Lovenox for VTE ppx
Medical management as pr primary team
Time Spent
Total Time Spent with Patient (in minutes): 15
Subjective Data
-
Date of Service: February 16, 2024
Interval Events:
No acute events overnight. Slept well. Pain Controlled. Denies Nausea/Vomiting with sips of clears, +bowel function -loose stools.
Objective Data
-
Intake and Output
02/15/24 02/16/24/05/05
06:59 06:59 06:59
Intake Total 1576 / 1576 120 / 120
Output Total 1690 / 1690 400 / 400
Balance -114 / -114 -280 / -280
Intake:
Oral fluids 200 / 200 120 / 120
IV piggybacks 420 / 420
TPN/PPN 776 / 776
Amount instilled into GI Tube ( 180 / 180
Total)
[place] Sump 180 / 180
Output:
Gastrointestinal tube output ( 500 / 500
Total)
[place] Sump 500 / 500
Urine, Voided 1190 / 1190 400 / 400
Other:
Number of approximated SMALL 1
amounts of urine
Number of approximated MODERATE 1
amounts of urine
Number of unmeasured liquid
stools
Rectum 5 2
Vital Signs
Temp Pulse Resp BP Pulse Ox
98.5 F 65 16 151/92 97
02/16/24 07:16 02/16/24 07:16 02/16/24 07:16 02/16/24 07:16 02/16/24 07:16
Lab Results
02/16/24 05:00
02/16/24 05:00
Calcium 8.0 mg/dl (8.4-10.2) L 02/16/24 05:00
Phosphorus 3.5 mg/dl (2.5-4.5) 02/16/24 05:00
Magnesium 2.1 mg/dl (1.6-2.3) 02/16/24 05:00
Total Bilirubin 0.5 mg/dl (0.2-1.3) 02/16/24 05:00
AST 24 U/L (17-59) 02/16/24 05:00
ALT 16 U/L (0-50) 02/16/24 05:00
Alkaline Phosphatase 45 U/L (38-126) 02/16/24 05:00
Total Protein 4.4 g/dl (6.3-8.2) L 02/16/24 05:00
Albumin 2.4 g/dl (3.5-5.0) L 02/16/24 05:00
Physical Exam
-
GENERAL/NEURO: Awake, Alert, no distress
CHEST: Unlabored breathing on RA
ABDOMEN: Soft, Non-Tender, Non-Distended, dressing clean dry and intact.
--- NOTE | 2024-02-16 09:03 | W.PN.HOSP.TC ---
Today's Communication/Plan
-
see plan
Assessment / Plan
Assessment / Plan
# Small bowel closed-loop obstruction with ischemia possibly secondary to internal hernia/volvulus
# Post-Op Ileus
Septic shock most likely from bacterial translocation, fully resolved
Sepsis was present on admission
- s/p small bowel resection 02/10
-TPN per surgery
-s/p NGT, removed this morning; OK for sips; patient passed gas this AM
-Blood cultures NGTD x2
-Levaquin/Flagyl day 6
-Zofran, Dilaudid as needed
ROBIN 2/2 septic shock
-resolved
Hypokalemia
-increasing K in TPN per surgery
Freq PVC's (1-3 per minute) Pt states always has this and goes to cardio at [place] yearly for this and was told it was benign
Lactic Acidosis better
2.3-->4.3-->2.0
Hyponatremia
-resolved
# Essential hypertension
currently normotensive, 154/88
-Hold amlodipine, lisinopril/thiazide,as pt NPO
-As needed hydralazine
GERD
continue Pepcid IV
Gout
-Hold allopurinol
Full code
DVT prophylaxis� subQ lovenox
N.p.o.
transferred to tele, walking around the unit
Anticipated Discharge: > 48 hours
Subjective/Interval History
-
Date of Service: February 16, 2024
passed gas this morning
abdominal pain improved
Objective Data
-
Labs:
Laboratory Results
02/16/24
05:00
WBC 8.0
Hgb 11.6 L
Hct 34.5 L
Plt Count 177
Sodium 137
Potassium 3.4 L
Chloride 106
Carbon Dioxide 26
BUN 27 H
Creatinine 0.7
Glucose 106 H
Calcium 8.0 L
Total Bilirubin 0.5
AST 24
ALT 16
Alkaline Phosphatase 45
Vital Signs:
Vital Signs
Temp Pulse Resp BP Pulse Ox
98.5 F 65 16 151/92 97
02/16/24 07:16 02/16/24 07:16 02/16/24 07:16 02/16/24 07:16 02/16/24 07:16
I&O
02/15/24 02/16/24 02/17/24
06:59 06:59 06:59
Intake Total 1576 / 1576 120 / 120
Output Total 1690 / 1690 400 / 400
Balance -114 / -114 -280 / -280
Review of Systems
-
History Source: Patient
All other systems: Reviewed and negative
Physical Exam
-
General: Well Developed, Well Nourished and No Apparent Distress
HEENT: Atraumatic and Moist Mucous Membranes
Respiratory: Clear to Auscultation
Cardiac: Regular Rhythm and S1/S2
GI: Soft, Nontender (to light pressure) and Other (mid-line surgical scar with cleopatra )
Musculoskeletal: No Clubbing, No Cyanosis and No Edema
Neuro: Awake, Alert and Oriented
Psych: Calm
Data Reviewed
-
Diagnostic Radiology: Report Reviewed by me
Labs: Labs Reviewed by me
[2024-02-16] MEDS: KCL 270 MEQ IV (10:36)
[2024-02-16 12:20] LABS: Glucose - Point of Care 73 mg/dl (70-99)
--- NOTE | 2024-02-16 14:52 | CM ---
Reviewed the chart notes. Per notes, NGT removed, tolerated sips and chips, will advance to clears today, TPN continues. CM continues to be available to patient/family and is monitoring medical plan for needs at discharge.
Plan: Discharge to home when medically stable.
[2024-02-16 17:22] LABS: Glucose - Point of Care 111 mg/dl (70-99)
[2024-02-16] MEDS: LOVENOX 40 MG SC (18:02)
[2024-02-16] MEDS: DILAUDID 1 MG IV (19:17)
[2024-02-16] MEDS: Parenteral Nutrition, Central 1500 IV (21:00)
[2024-02-16] MEDS: NSS (PRESERVATIVE FREE) 8 ML IV (21:53)
[2024-02-16] MEDS: PEPCID 20 MG IV (21:53)
[2024-02-16] MEDS: LEVAQUIN 150 IV (21:53)
[2024-02-17 00:49] LABS: Glucose - Point of Care 96 mg/dl (70-99)
[2024-02-17 03:40] VITALS: BP 131/81
[2024-02-17] MEDS: FLAGYL 500 MG 100 IV ×3 (03:47→20:14)
[2024-02-17 06:00] VITALS: BMI 28.7
[2024-02-17 06:25] LABS: Hematocrit 34.4 % (39.0-52.0); Hemoglobin 11.8 g/dL (13.0-18.0); Mean Corp Hgb Conc. 34.3 g/dL (33.0-37.0); Mean Corpuscular Hgb 29.6 pg (27.0-31.0); Mean Corpuscular Volume 86.2 fL (80.0-94.0); Mean Platelet Volume 9.4 fL (7.4-10.4); Platelet Count 190 10^3/uL (130-400); Red Blood Cell Count 3.99 10^6/uL (4.70-6.10); Red Cell Dist. Width 13.4 % (11.5-14.5); White Blood Cell Count 9.1 10^3/uL (4.8-10.8)
[2024-02-17 06:43] LABS: Blood Urea Nitrogen 23 mg/dl (9-20); Calcium 8.1 mg/dl (8.4-10.2); Carbon Dioxide 25 mmol/L (22-30); Chloride 106 mmol/L (98-107); Estimated Creatinine Clearance 87 ml/min; Glucose 111 mg/dl (70-99); Potassium 3.8 mmol/L (3.5-5.1); Sodium 135 mmol/L (135-145); Triglycerides 59 mg/dl (10-149); eGFR > 60.00
[2024-02-17 07:40] VITALS: BP 135/81
--- NOTE | 2024-02-17 08:28 | W.PN.GS2 ---
Today's Communication / Plan
-
--Fulls, ADAT to LRD
--Continue TPN, increase potassium, likely last day today. Nutrition following with us
--OOB/Ambulate as able
--Pain control: Tylenol, Toradol, Oxycodone
Assessment / Plan
-
68 yo male who is POD #7 dx lap to ex lap with SBR (135cm) for closed loop SBO secondary to band adhesion. Expected ileus, now resolving.
--Fulls, ADAT to LRD
--Continue TPN, increase potassium, likely last day today. Nutrition following with us
--OOB/Ambulate as able
--Pain control: Tylenol, Toradol, Oxycodone
--Continue abx, will need to determine course with operating surgeon
--Lovenox for VTE ppx
--Medical management as pr primary team
Subjective Data
-
Date of Service: February 17, 2024
Feels improved. Denies any abdominal pain. Passing flatus and multiple loose bowel movements (becoming less frequent). No nausea or vomiting. No fevers.
Objective Data
-
Intake and Output
02/16/24 02/17/24 02/18/24
06:59 06:59 06:59
Intake Total 120 / 120 2265
Output Total 400 / 400
Balance -280 / -280 2265
Intake:
Oral fluids 120 / 120 1140 / 1140
IV piggybacks 370 / 370
TPN/PPN 756 / 756
Output:
Urine, Voided 400 / 400
Other:
Number of approximated SMALL 1
amounts of urine
Number of approximated MODERATE 1 4
amounts of urine
Number of unmeasured liquid
stools
Rectum 2 3
Vital Signs
Temp Pulse Resp BP Pulse Ox
98.7 F 70 20 131/81 96
02/17/24 03:40 02/17/24 03:40 02/17/24 03:40 02/17/24 03:40 02/17/24 03:40
Lab Results
02/17/24 06:13
02/17/24 06:13
Calcium 8.1 mg/dl (8.4-10.2) L 02/17/24 06:13
Phosphorus 3.5 mg/dl (2.5-4.5) 02/16/24 05:00
Magnesium 2.0 mg/dl (1.6-2.3) 02/17/24 06:13
Total Bilirubin 0.5 mg/dl (0.2-1.3) 02/16/24 05:00
AST 24 U/L (17-59) 02/16/24 05:00
ALT 16 U/L (0-50) 02/16/24 05:00
Alkaline Phosphatase 45 U/L (38-126) 02/16/24 05:00
Total Protein 4.4 g/dl (6.3-8.2) L 02/16/24 05:00
Albumin 2.4 g/dl (3.5-5.0) L 02/16/24 05:00
Physical Exam
-
Gen: NAD
Abd: soft, minimal tenderness, ND, non-peritoneal, incision c/d/i - ecchymosis and palpable small hematoma, no erythema or drainage
--- NOTE | 2024-02-17 09:11 | W.PN.HOSP.TC ---
Today's Communication/Plan
-
see plan
Assessment / Plan
Assessment / Plan
# Small bowel closed-loop obstruction with ischemia possibly secondary to internal hernia/volvulus
# Post-Op Ileus
Septic shock most likely from bacterial translocation, fully resolved
Sepsis was present on admission
- s/p small bowel resection 02/10
-s/p NGT, removed morning 02/15 - diet now advanced to LRD
--TPN per surgery - can likely stop tomorrow
-Blood cultures NGTD x2
-Levaquin/Flagyl day 04/21
-Zofran, Dilaudid as needed
ROBIN 2/2 septic shock
-resolved
Hypokalemia
-increasing K in TPN per surgery
-resolved
Freq PVC's (1-3 per minute) Pt states always has this and goes to cardio at [place] yearly for this and was told it was benign
Lactic Acidosis resolved
Hyponatremia
-resolved
# Essential hypertension
currently normotensive, 154/88
-resume amlodipine today
-likely resume [employer] lisinopril/thiazide tomorrow
-As needed hydralazine
GERD
continue Pepcid IV
Gout
-Hold allopurinol
Full code
DVT prophylaxis� subQ lovenox
N.p.o.
transferred to tele, walking around the unit
Anticipated Discharge: 24 - 48 hours
Subjective/Interval History
-
Date of Service: February 17, 2024
having BM, feeling much better
ordered LRD
Objective Data
-
Labs:
Laboratory Results
02/17/24
06:13
WBC 9.1
Hgb 11.8 L
Hct 34.4 L
Plt Count 190
Sodium 135
Potassium 3.8
Chloride 106
Carbon Dioxide 25
BUN 23 H
Creatinine 0.8
Glucose 111 H
Calcium 8.1 L
Vital Signs:
Vital Signs
Temp Pulse Resp BP Pulse Ox
98.9 F 66 18 135/81 95
02/17/24 07:40 02/17/24 07:40 02/17/24 07:40 02/17/24 07:40 02/17/24 07:40
I&O
02/16/24 02/17/24 02/18/24
06:59 06:59 06:59
Intake Total 120 / 120 2265
Output Total 400 / 400
Balance -280 / -280 2265
Review of Systems
-
History Source: Patient
All other systems: Reviewed and negative
Physical Exam
-
General: Well Developed, Well Nourished and No Apparent Distress
HEENT: Atraumatic and Moist Mucous Membranes
Respiratory: Clear to Auscultation
Cardiac: Regular Rhythm and S1/S2
GI: Soft, Nontender (to light pressure) and Other (mid-line surgical scar with cleopatra )
Musculoskeletal: No Clubbing, No Cyanosis and No Edema
Neuro: Awake, Alert and Oriented
Psych: Calm
Data Reviewed
-
Diagnostic Radiology: Report Reviewed by me
Labs: Labs Reviewed by me
[2024-02-17] MEDS: ZYLOPRIM 300 MG PO (10:22)
[2024-02-17] MEDS: NORVASC 5 MG PO (10:22)
[2024-02-17] MEDS: ASPIR LOW (ENTERIC COATED) 81 MG PO (10:22)
--- NOTE | 2024-02-17 10:51 | CM ---
Reviewed the chart notes and spoke with the patient and spouse at the bedside. Patient is ambulating the hallway without assistive device. Per notes, full liquid diet today, ADAT to LRD. Continue TPN, increase potassium, likely last day today.
CM continues to be available to patient/family and is monitoring medical plan for needs at discharge.
Plan: Discharge to home when medically stable. Anticipate no needs.
[2024-02-17 11:00] VITALS: BP 130/81
[2024-02-17 15:35] VITALS: BP 133/85
[2024-02-17] MEDS: LIPITOR 10 MG PO (17:07)
[2024-02-17] MEDS: LOVENOX 40 MG SC (17:07)
[2024-02-17 19:20] LABS: Glucose - Point of Care 114 mg/dl (70-99)
[2024-02-17 19:46] VITALS: BP 146/78
[2024-02-17] MEDS: Parenteral Nutrition, Central 1500 IV (20:47)
[2024-02-17] MEDS: PEPCID 20 MG PO (20:49)
[2024-02-17] MEDS: LEVAQUIN 150 IV (21:30)
[2024-02-17 23:30] VITALS: BP 124/68
[2024-02-17 23:58] LABS: Glucose - Point of Care 129 mg/dl (70-99)
[2024-02-18] MEDS: FLAGYL 500 MG 100 IV (03:25)
[2024-02-18 03:40] VITALS: BP 133/78
[2024-02-18 05:56] VITALS: BMI 28.5
[2024-02-18 07:16] LABS: Blood Urea Nitrogen 21 mg/dl (9-20); Calcium 8.1 mg/dl (8.4-10.2); Carbon Dioxide 25 mmol/L (22-30); Chloride 104 mmol/L (98-107); Estimated Creatinine Clearance 77 ml/min; Glucose 106 mg/dl (70-99); Magnesium 1.9 mg/dl (1.6-2.3); Potassium 4.1 mmol/L (3.5-5.1); Sodium 133 mmol/L (135-145); eGFR > 60.00
[2024-02-18 07:35] VITALS: BP 129/76
[2024-02-18] MEDS: ZYLOPRIM 300 MG PO (08:50)
[2024-02-18] MEDS: ASPIR LOW (ENTERIC COATED) 81 MG PO (08:50)
[2024-02-18] MEDS: NORVASC 5 MG PO (08:50)
--- NOTE | 2024-02-18 09:46 | W.PN.GS2 ---
Today's Communication / Plan
-
OK for DC
Assessment / Plan
-
68 yo male who is POD #8 dx lap to ex lap with SBR (135cm) for closed loop SBO secondary to band adhesion. Expected ileus, now resolving.
--OK for DC home from surgical standpoint
--LRD discussed
--F/u 1 week for staple removal
Subjective Data
-
Date of Service: February 18, 2024
AFVSS, ambualting, pain well controlled, bola LRD, passing flatus and loose stool
Objective Data
-
Intake and Output
02/17/24 02/18/24 02/19/24
06:59 06:59 06:59
Intake Total 2266 / 2266 1170 / 1170
Balance 2266 / 2266 1170 / 1170
Intake:
Oral fluids 1140 / 1140 1170 / 1170
IV piggybacks 370 / 370
TPN/PPN 756 / 756
Other:
Number of approximated SMALL 1
amounts of urine
Number of approximated MODERATE 4 3
amounts of urine
Number of unmeasured liquid
stools
Rectum 3 2
Vital Signs
Temp Pulse Resp BP Pulse Ox
98.1 F 66 16 129/76 98
02/18/24 07:35 02/18/24 08:50 02/18/24 07:35 02/18/24 08:50 02/18/24 07:35
Lab Results
02/17/24 06:13
02/18/24 06:02
Calcium 8.1 mg/dl (8.4-10.2) L 02/18/24 06:02
Phosphorus 3.5 mg/dl (2.5-4.5) 02/16/24 05:00
Magnesium 1.9 mg/dl (1.6-2.3) 02/18/24 06:02
Total Bilirubin 0.5 mg/dl (0.2-1.3) 02/16/24 05:00
AST 24 U/L (17-59) 02/16/24 05:00
ALT 16 U/L (0-50) 02/16/24 05:00
Alkaline Phosphatase 45 U/L (38-126) 02/16/24 05:00
Total Protein 4.4 g/dl (6.3-8.2) L 02/16/24 05:00
Albumin 2.4 g/dl (3.5-5.0) L 02/16/24 05:00
Physical Exam
-
Gen: NAD
Abd: soft, approp ttp, incision cdi with expected ecchymosis, cleopatra present
--- NOTE | 2024-02-18 10:37 | W.DS.TRANS ---
DC Summary - [employer]
-
Discharge Instructions:
Discharge Diagnosis/Procedures Small bowel obstruction
Diet Low Fiber
Activity As tolerated
Additional Activity Fall precaution
Wound Care Cover wound with plain dry gauze as needed if
drainage, otherwise OK to leave open to air
Instructions: Low Fiber Diet
Stand-Alone Forms:
Discharge Medications:
DC Medications w/original date entered in [facility]
allopurinol 300 mg tablet 300 mg PO DAILY Gout 02/10/24
aspirin 81 mg tablet,delayed release 81 mg PO DAILY Blood Clot Prevention/Tx 02/10/24
famotidine 20 mg tablet 20 mg PO HS Gastrointestinal Issue 02/10/24
lovastatin 40 mg tablet 40 mg PO HS High Cholesterol 02/10/24
amlodipine 5 mg tablet 5 mg PO DAILY #30 tabs 02/18/24
levofloxacin 750 mg tablet 750 mg PO DAILY 2 days #2 tabs 02/18/24
metronidazole 500 mg tablet 500 mg PO Q8H 2 days #6 tabs 02/18/24
Home Medication Changes
--- NOTE | 2024-02-18 11:14 | CM ---
Reviewed the chart notes and spoke with the patient and his spouse at the bedside. IMM signed and placed on chart. Patient's spouse to provide transportation home today. CM continues to be available to patient/family and is monitoring medical
plan for needs at discharge.
Plan: Discharge to home today with no additional needs being identified.
[2024-02-18 11:30] VITALS: BP 131/80
== END 2024-02-18 12:08 | disposition home or self-care (01) | DRG 853 ==
LOC: 2 NORTH 22:55
PROVIDERS: Internal Medicine; Nurse Practitioner; Nurse Practitioner Primary Care; Physician Assistant; Registered Nurse; Student in an Organized Health Care Education/Training Program; ADMITTING PHYSICIAN Hospitalist; ATTENDING PHYSICIAN Internal Medicine; CONSULT PHYSICIAN Internal Medicine Critical Care Medicine; CONSULT PHYSICIAN Surgery; EMERGENCY PHYSICIAN Emergency Medicine; FAMILY PHYSICIAN Family Medicine
PROC: 5A1955Z Respiratory Ventilation, Greater than 96 Consecutive Hours (ICD-10-PCS; 2024-02-11)
PROC: 0BH17EZ Insertion of Endotracheal Airway into Trachea, Via Natural or Artificial Opening (ICD-10-PCS; 2024-02-11)
PROC: 0DT80ZZ Resection of Small Intestine, Open Approach (ICD-10-PCS; 2024-02-11)
DX: A41.9 Sepsis, unspecified organism (principal); J96.00 Acute respiratory failure, unspecified whether with hypoxia or hypercapnia; R65.21 Severe sepsis with septic shock; K56.50 Intestinal adhesions [bands], unspecified as to partial versus complete obstruction; E87.20 Acidosis, unspecified; K91.89 Other postprocedural complications and disorders of digestive system; N17.9 Acute kidney failure, unspecified; E87.1 Hypo-osmolality and hyponatremia; K56.7 Ileus, unspecified; R65.20 Severe sepsis without septic shock; I49.3 Ventricular premature depolarization; I10 Essential (primary) hypertension; K21.9 Gastro-esophageal reflux disease without esophagitis; M10.9 Gout, unspecified; E87.6 Hypokalemia
CPT/HCPCS: 88307; 71045; 74177; 80048; 80053; 81003; 81015; 82805; 82962; 83605; 83690; 83735; 84100; 84134; 84478; 85025; 85027; 85610; 85730; 87040; 93005; 94002; 96361; 96374; 96375; 96376; 97116; 97163; 97530; 99152; 99291; J7030; Q9967